=== PATIENT | female | born 1945 | race Caucasian/White ===

== ENCOUNTER 2016-08-09 12:27 | Outpatient (CLI) | payer MEDICARE | END 2016-08-09 12:28 | disposition home or self-care (01) | DX: C50.911 Malignant neoplasm of unspecified site of right female breast (principal) ==

== ENCOUNTER 2016-10-12 09:19 | Outpatient (CLI) | payer MEDICARE | END 2016-10-12 09:20 | disposition home or self-care (01) | DX: E11.9 Type 2 diabetes mellitus without complications (principal); E03.9 Hypothyroidism, unspecified ==

== ENCOUNTER 2017-02-05 07:22 | Outpatient (CLI) | payer MEDICARE | END 2017-02-05 07:23 | disposition home or self-care (01) | LOC: LAB.WCP 07:22 | PROVIDERS: ATTEND Family Medicine | DX: N39.0 Urinary tract infection, site not specified (principal) | CPT/HCPCS: 87077; 87086 ==

== ENCOUNTER 2017-02-09 16:42 | Outpatient (CLI) | payer MEDICARE ==
--- NOTE | 2017-02-09 22:07 | MRI Report ---
EXAM: RIGHT SHOULDER MRI WITHOUT CONTRAST EXAM DATE: 02/09/2017 05:21 p.m. CLINICAL HISTORY: Right rotator cuff syndrome. COMPARISON: Right shoulder MRI from 03/18/2015. TECHNIQUE: Multiplanar, multisequence T1-weighted and fluid-sensitive sequences of the shoulder witho ut contrast. Other: None. FINDINGS: Acromioclavicular Region: The acromion is type I. Small enthesophytes at the undersurface of the acro mion. Mild acromioclavicular joint osteoarthritis. The coracoacromial and coracoclavicular ligaments are intact. Small amount of fluid at the subacromial subdeltoid bursa. Glenohumeral Region: No subluxation. Small glenohumeral joint effusion. There is a 9 x 7 x 6 mm loose body within the anterosuperior medial aspect of the glenohumeral joint. It is unchanged since the pr evious study. 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 The gleno humeral ligaments and joint capsule are unremarkable. Bone Marrow: No fracture, marrow edema or bone lesions. Labrum: The labrum is unremarkable on this nonarthrographic study. Musculature/Rotator Cuff: There is a focal, approximately 1.6 x 1.1 cm high-grade partial-thickness b ursal surface or full-thickness tear at the anterior distal supraspinatus tendon. Similar findings ar e seen on the previous study. Tendinosis at the remaining supraspinatus tendon and at the infraspinat us tendon. The teres minor tendon is unremarkable. Small ganglion cysts within the distal aspect of t he subscapularis muscle tendon unit. Subscapularis tendinosis. No edema or fatty atrophy. Biceps Tendon: The long head of the biceps tendon and biceps perla are intact. Other: The subcutaneous tissues are unremarkable. IMPRESSION: 1. Focal high-grade partial-thickness bursal surface or a full-thickness tear at the anterior distal supraspinatus tendon. Similar findings are seen on the previous study. There is also supraspinatus an d infraspinatus and subscapularis tendinosis. 2. Mild acromioclavicular joint osteoarthritis. 3. A 9 x 7 x 6 mm loose body within the anterosuperior medial aspect of the glenohumeral joint. No ch sarah. 4. 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 [facility] MUSCULOSKELETAL RADIOLOGY SECTION Referring Provider Line: [phone] SITE ID: [id number]
== END 2017-02-09 16:43 | disposition home or self-care (01) ==
LOC: DI 16:42
PROVIDERS: ATTEND Physician Assistant Medical
DX: M75.101 Unspecified rotator cuff tear or rupture of right shoulder, not specified as traumatic (principal); M19.011 Primary osteoarthritis, right shoulder; M24.011 Loose body in right shoulder; M94.211 Chondromalacia, right shoulder

== ENCOUNTER 2017-03-27 18:36 | Outpatient (CLI) | payer MEDICARE ==
[2017-03-27 18:42] LABS: BASOPHILS % (AUTO) 0.2 %; EOSINOPHILS # (AUTO) 0.1 10^3/uL (0.0-0.7); EOSINOPHILS % (AUTO) 0.7 %; HCT - HEMATOCRIT 38.5 % (37.0-47.0); LYMPHOCYTES # (AUTO) 1.8 10^3/uL (1.5-3.5); LYMPHOCYTES % (AUTO) 14.1 %; MEAN CORPUSCULAR HEMOGLOBIN 31.2 pg (27.0-31.0); MEAN CORPUSCULAR HGB CONC 33.8 g/dL (32.0-36.0); MEAN CORPUSCULAR VOLUME 92.4 fL (81.0-99.0); MEAN PLATELET VOLUME 9.1 fL (7.9-10.8); MONOCYTES # (AUTO) 0.9 10^3/uL (0.0-1.0); MONOCYTES % (AUTO) 6.8 %; NEUTROPHILS # (AUTO) 10.1 10^3/uL (1.5-6.6); NEUTROPHILS % (AUTO) 78.2 %; RED BLOOD COUNT 4.16 10^6/uL (4.20-5.40); RED CELL DISTRIBUTION WIDTH 12.4 % (12.0-15.0)
[2017-03-27 18:54] LABS: ALBUMIN/GLOBULIN RATIO 1.3 (1.0-2.2); BILIRUBIN,TOTAL 0.5 mg/dL (0.2-1.0); CALCIUM 10.9 mg/dL (8.5-10.3); CREATININE 0.7 mg/dL (0.4-1.0); TOTAL PROTEIN 8.1 g/dL (6.7-8.2)
[2017-03-27 19:02] LABS: H. PYLORI IGG ANTIBODY Negative (Negative); HPYLORI NEG QC Negative (Negative); HPYLORI POS QC POSITIVE (Positive)
[2017-03-27] MEDS ORDERED: IOPAMIDOL-300 100 ML VIAL IVP ONE (20:21)
[2017-03-27] MEDS ORDERED: IOPAMIDOL-300 50 ML VIAL PO ONE (20:21)
--- NOTE | 2017-03-27 21:05 | CT Report ---
EXAM: CT ABDOMEN AND PELVIS EXAM DATE: 03/27/2017 08:27 PM. CLINICAL HISTORY: ABDOMINAL PAIN,RIGHT LOWER QUADRANT. COMPARISONS: None. TECHNIQUE: Routine helical CT imaging was performed through the abdomen and pelvis. IV contrast: 100 mL Isovue-300. Enteric contrast: No. Reconstructions: Coronal and sagittal. In accordance with CT protocol optimization, one or more of the following dose reduction techniques w ere utilized for this exam: automated exposure control, adjustment of mA and/or KV based on patient s ize, or use of iterative reconstructive technique. FINDINGS: Lung Bases: Subpleural scarring anteriorly at the right lung base. Otherwise unremarkable. Liver: Normal. No masses. Gallbladder/Bile Ducts: The gallbladder has been removed. No bile duct dilatation. Spleen: Normal. Pancreas: Normal. Adrenal Glands: Normal. Kidneys: Normal. No masses or hydronephrosis. Peritoneal Cavity/Bowel: Normal. No free fluid, free air or adenopathy. No masses or acute inflammato ry process. No evidence of appendicitis. There is sigmoid colon diverticulosis with a short segment o f mural thickening and pericolonic inflammatory stranding involving the sigmoid colon. Several tiny a ir collections noted within the mesocolon. Duodenal diverticulosis also noted. Pelvic Organs: Normal urinary bladder. The uterus is been removed. Vasculature: No aneurysms or other significant abnormality. Bones: No significant abnormality. Other: None. IMPRESSION: 1. Acute sigmoid colon diverticulitis with microperforation. No evidence of abscess. [facility] The call report notification system was initiated by Dr. Ross Koehler at 20:52 hrs on 03/27/17. The above findings were discussed with LINDA Cm by Dr. Ross Koehler at 21:01 hrs on 03/27/17. Referring Provider Line: [phone] SITE ID: [id number]
== END 2017-03-27 18:37 | disposition home or self-care (01) ==
LOC: DI 18:36
PROVIDERS: ATTEND Physician Assistant Medical
DX: K57.32 Diverticulitis of large intestine without perforation or abscess without bleeding (principal); R10.31 Right lower quadrant pain
CPT/HCPCS: 36415; 74177; 80053; 83690; 85025; 87339; Q9967

== ENCOUNTER 2017-03-29 09:06 | Outpatient (CLI) | payer MEDICARE ==
--- NOTE | 2017-03-29 12:53 | Mammography Report ---
DIGITAL DIAGNOSTIC RIGHT MAMMOGRAM: 03/29/2017 CLINICAL INDICATION: History of right breast cancer status post lumpectomy and radiation therapy. TECHNIQUE: Right CC, MLO, true lateral, laterally exaggerated craniocaudal, spot magnification views . COMPARISON: 08/09/2016, 06/22/2015, 06/09/2015, 05/20/2015, 04/03/2013, 03/12/2012, 02/26/2012, 10/22, 11/12/2009 FINDINGS: The right breast again demonstrates scattered fibroglandular densities. Postoperative and post-treatment changes in the right upper outer posterior breast are stable. Coarse and punctate, t ypically benign calcifications are present. No suspicious masses, clustered microcalcifications, or regions of architectural distortion are identified. IMPRESSION: PROBABLE BENIGN POSTOPERATIVE AND POST-TREATMENT CHANGES. RECOMMENDATION: Diagnostic bilateral mammogram in six months. BIRADS CATEGORY 3 - PROBABLE BENIGN FINDINGS. STANDARD QUALIFYING STATEMENTS 1. This examination was reviewed with the aid of Computer-Aided Detection (CAD). 2. A negative or benign imaging report should not delay biopsy if clinically suspicious findings are present. Consider surgical consultation if warranted. More than 5% of cancers are not identified by i maging. 3. Dense breasts may obscure an underlying neoplasm. JOB #: [id number] EXT JOB #:[id number]
== END 2017-03-29 09:07 | disposition home or self-care (01) ==
LOC: DI 09:06
PROVIDERS: ATTEND Physician Assistant Medical
DX: C50.911 Malignant neoplasm of unspecified site of right female breast (principal)
CPT/HCPCS: 36415; 80053; 83690; 85025; 87339

== ENCOUNTER 2017-05-04 13:54 | Outpatient (CLI) | payer MEDICARE ==
[2017-05-04 14:27] LABS: CALCIUM 10.6 mg/dL (8.5-10.3); CREATININE 0.7 mg/dL (0.4-1.0); POTASSIUM 3.9 mmol/L (3.5-5.0)
[2017-05-04] MEDS ORDERED: IOPAMIDOL-300 100 ML VIAL ONE (14:31)
[2017-05-04] MEDS ORDERED: IOPAMIDOL-300 50 ML VIAL ONE (14:31)
[2017-05-04] MEDS: IOPAMIDOL-300 100 ML VIAL IVP ONE (15:38)
[2017-05-04] MEDS: IOPAMIDOL-300 50 ML VIAL PO ONE (15:39)
--- NOTE | 2017-05-04 16:11 | CT Report ---
CT OF THE ABDOMEN AND PELVIS WITH CONTRAST: 05/04/2017 CLINICAL INDICATION: Diverticulitis. COMPARISON: 03/27/2017. TECHNIQUE: Axial CT images of the abdomen and pelvis were obtained with 100 mL of Isovue-300 intraven ously as well as oral contrast. FINDINGS: Limited evaluation of the lung bases is unremarkable. ABDOMEN: The liver, spleen, pancreas, kidneys and adrenal glands are unremarkable. The patient is sta tus post cholecystectomy. No bowel dilatation, free gas, or free fluid is present. No abdominal adeno yuridia is seen. PELVIS: The previously seen sigmoid diverticulitis with microperforation has resolved. No new inflamm ation is appreciated. Postoperative changes of hysterectomy are present. No adenopathy or free fluid is seen. The osseous structures demonstrate degenerative changes. IMPRESSION: RESOLUTION OF PREVIOUSLY SEEN DIVERTICULITIS AND MICROPERFORATION. NO ABSCESS OR NEW INF LAMMATION IS SEEN. In accordance with CT protocol optimization, one or more of the following dose reduction techniques w ere utilized for this exam: automated exposure control, adjustment of mA and/or KV based on patient size, or use of iterative reconstructive technique. JOB #: [id number] EXT JOB #:[id number]
== END 2017-05-04 13:55 | disposition home or self-care (01) ==
LOC: LAB 13:54
PROVIDERS: ATTEND Physician Assistant Medical
DX: K57.92 Diverticulitis of intestine, part unspecified, without perforation or abscess without bleeding (principal); E11.9 Type 2 diabetes mellitus without complications
CPT/HCPCS: 36415; 74177; 80048; Q9967

== ENCOUNTER 2017-05-10 15:56 | Outpatient (CLI) | payer MEDICARE ==
[2017-05-10 19:31] LABS: HEMOGLOBIN A1C 0.51 g/dL
== END 2017-05-10 15:57 | disposition home or self-care (01) ==
LOC: LAB.WCP 15:56
PROVIDERS: ATTEND Physician Assistant Medical
DX: E83.52 Hypercalcemia (principal); E11.9 Type 2 diabetes mellitus without complications; E78.5 Hyperlipidemia, unspecified; R73.9 Hyperglycemia, unspecified; E03.9 Hypothyroidism, unspecified; D64.9 Anemia, unspecified; D72.829 Elevated white blood cell count, unspecified
CPT/HCPCS: 36415; 83036; 83519; 83970

== ENCOUNTER 2017-08-14 15:30 | Outpatient (CLI) | payer MEDICARE | END 2017-08-14 15:31 | disposition home or self-care (01) | LOC: LAB.R 15:30 | PROVIDERS: ATTEND Physician Assistant Medical | DX: N39.0 Urinary tract infection, site not specified (principal) | CPT/HCPCS: 87086 ==

== ENCOUNTER 2017-08-29 14:48 | Outpatient (CLI) | payer MEDICARE ==
--- NOTE | 2017-08-29 17:28 | Ultrasound Report ---
ULTRASOUND LEFT AXILLA: 08/29/2017 CLINICAL INDICATION: Palpable abnormality. TECHNIQUE: Real-time scanning was performed with media sales representative static images obtained. FINDINGS: Ultrasound of the left axilla was performed. There is left axillary adenopathy, with the largest node measuring 2.9 x 2.4 x 1.5 cm, and an adjacent node measuring 2.6 x 2.5 x 1.1 cm. IMPRESSION: LEFT AXILLARY ADENOPATHY. TD: 08/29/2017 17:27
== END 2017-08-29 14:49 | disposition home or self-care (01) ==
LOC: DI 14:48
PROVIDERS: ATTEND Surgery
DX: R59.0 Localized enlarged lymph nodes (principal)
CPT/HCPCS: 76882

== ENCOUNTER 2017-10-15 09:31 | Outpatient (CLI) | payer MEDICARE ==
[2017-10-15] MEDS ORDERED: LIDOCAINE 1% 10 ML MDV SUBQ ONE (11:20)
--- NOTE | 2017-10-15 11:43 | Ultrasound Report ---
ULTRASOUND-GUIDED FINE NEEDLE ASPIRATION OF LEFT AXILLARY LYMPH NODE: 10/15/2017 CLINICAL INDICATION: History of right breast cancer, palpable left axillary adenopathy. TECHNIQUE/FINDINGS: Following obtaining informed consent, a suitable site in the left axilla was selected with ultrasound. The skin was prepped and draped in the usual sterile fashion. The skin and soft tissues were anesthetized with lidocaine. Under ultrasound guidance, four 22-gauge fine needle aspirations were performed. Needle washings were submitted to Pathology in [facility]. The patient tolerated the procedure well. No immediate complications. IMPRESSION: ULTRASOUND-GUIDED FINE NEEDLE ASPIRATION OF LEFT AXILLARY ADENOPATHY. TD: 10/15/2017 11:42
[2017-10-15 16:46] VITALS: BP 130/84
== END 2017-10-15 09:32 | disposition home or self-care (01) ==
LOC: DI 09:31
PROVIDERS: ATTEND Surgery
DX: R22.2 Localized swelling, mass and lump, trunk (principal); Z85.3 Personal history of malignant neoplasm of breast
CPT/HCPCS: 10022; 76942

== ENCOUNTER 2017-10-24 12:27 | Outpatient (CLI) | payer MEDICARE ==
--- NOTE | 2017-10-24 14:54 | Mammography Report ---
BILATERAL MAMMOGRAPHY: 10/24/2017 HISTORY: Status post lumpectomy and radiation therapy for right breast cancer. COMPARISON: 03/29/2017, 08/09/2016, 06/22/2015, 06/09/2015, 05/20/2015, 04/03/2013, and 03/12/2012. TECHNIQUE: Bilateral digital CC and MLO projections are performed with an additional right true lateral image. FINDINGS: There are scattered fibroglandular densities. There is a focal area of architectural distortion with surgical onesimo and skin thickening in the right upper outer quadrant, corresponding to the site of prior lumpectomy. Scattered benign-appearing calcifications are seen in both breasts. No suspicious microcalcifications, dominant new mass, or interval change has occurred. In the left axilla, prominent lymph nodes are present which appear fatty with peripheral calcification. Vascular calcifications also noted. IMPRESSION: BENIGN - BI-RADS CATEGORY 2. SUGGEST ROUTINE SCREENING IN 12 MONTHS. COMMENT: The patient is scheduled for a biopsy of prominent left axillary lymph nodes on Sunday10/26/2017. STANDARD QUALIFYING STATEMENTS: 1. This examination was reviewed with the aid of Computer-Aided Detection (CAD). 2. A negative or benign imaging report should not delay biopsy if clinically suspicious findings are present. Consider surgical consultation if warranted. More than 5% of cancers are not identified by imaging. 3. Dense breasts may obscure an underlying neoplasm. TD: 10/24/2017 14:52
== END 2017-10-24 12:28 | disposition home or self-care (01) ==
LOC: DI 12:27
PROVIDERS: ATTEND Physician Assistant Medical
DX: R92.8 Other abnormal and inconclusive findings on diagnostic imaging of breast (principal)
CPT/HCPCS: 77066

== ENCOUNTER 2017-10-25 14:08 | Emergency (ER) | payer MEDICARE ==
[2017-10-25] MEDS ORDERED: SODIUM CHLORIDE 0.9% 1,000 ML IV ONE (17:38)
[2017-10-25] MEDS ORDERED: ONDANSETRON 4 MG/2 ML VIAL IVP STA (17:38)
--- NOTE | 2017-10-25 17:41 | ED Physician Documentation ---
PD HPI ABD PAIN - Stated complaint Stated Complaint: ABD PX/NAUSEA - Chief complaint Chief Complaint: Abd Pain - History obtained from History obtained from: Patient - History of Present Illness Timing - onset: Yesterday (She had perforated diverticulitis last year which was treated conservatively. No antibiotics since. Starting yesterday she developed diffuse and lower abdominal pain associated with nonbloody diarrhea and nausea without vomiting. She has not had fevers or chills. No recent travel, antibiotics, or camping. No sick contacts.) Review of Systems Ten Systems: 10 systems reviewed and negative Constitutional: denies: Fever, Chills Cardiac: denies: Chest pain / pressure, Palpitations Respiratory: denies: Dyspnea, Cough GI: reports: Abdominal Pain, Nausea, Diarrhea. denies: Vomiting, Constipation, Hematemesis, Bloody / black stool PD PAST MEDICAL HISTORY - Past Medical History Cardiovascular: Hypertension, High cholesterol, Other Respiratory: None Endocrine/Autoimmune: HyPOthyroidism GI: GERD : Incontinence, Frequency, Kidney stones, Other Psych: Depression, Anxiety, Panic attacks, Claustrophobia Musculoskeletal: Osteoarthritis, Fibromyalgia, Osteoporosis Derm: Eczema - Past Surgical History Past Surgical History: Yes General: Cholecystectomy, Colonoscopy Ortho: Knee replacement /SUPERINTENDENT PIPELINES: Hysterectomy, Other - Present Medications Home Medications: Ambulatory Orders Medication Instructions Recorded Confirmed Citalopram [CeleXA] 30 mg PO ONCE 12/19/12 08/21/16 Gemfibrozil [Lopid] 600 mg PO BIDAC 12/19/12 08/21/16 Levothyroxine Sodium [Tirosint] 75 mcg PO DAILY 12/19/12 08/21/16 Losartan [Cozaar] 50 mg PO DAILY 12/19/12 08/21/16 Pantoprazole Sodium 40 mg PO BID 12/19/12 08/21/16 raNITIdine HCl [Ranitidine HCl] 300 mg PO HS 12/19/12 08/21/16 Montelukast [Singulair] 10 mg ORAL DAILY 05/24/15 08/21/16 diphenhydrAMINE [Benadryl] 25 mg PO ONCE PRN 09/20/15 08/21/16 Ascorbic Acid [Vitamin C] 500 mg PO DAILY 08/21/16 08/21/16 Bacillus Coagulans [Probiotic] 1 cap PO DAILY 08/21/16 08/21/16 Andrae Cit/Mag/D3/Zn/Video Editing Intern/Cheko/Bor 3 each PO DAILY 08/21/16 08/21/16 [Citracal-Vit D + Magnesium Tab] Cholecalciferol (Vitamin D3) 2,000 unit PO DAILY 08/21/16 08/21/16 [Vitamin D] Cranberry Fruit Extract [Cranberry] 4 cap PO DAILY 08/21/16 08/21/16 Flaxseed Oil 2 mg PO DAILY 08/21/16 08/21/16 Garlic 1,000 mg PO DAILY 08/21/16 08/21/16 Glucosamine/D3/Boswellia Jenny 2 tab PO DAILY 08/21/16 08/21/16 [Osteo Bi-Flex Tablet] Meloxicam 7.5 mg PO DAILY 08/21/16 08/21/16 Vitamin B Complex Vit C No.4 150 mg PO DAILY 08/21/16 08/21/16 [Super B Complex] Dicyclomine HCl 20 mg PO QID PRN #20 tablet 10/25/17 Loperamide [Imodium] 2 mg PO QID PRN #10 capsule 10/25/17 - Allergies Allergies/Adverse Reactions: Allergies Allergy/AdvReac Type Severity Reaction Status Date / Time metformin Allergy Intermediate Nausea Verified 10/25/17 14:55 amoxicillin trihydrate * Allergy Mild Nausea Verified 10/25/17 14:55 [From Augmentin] potassium clavulanate * Allergy Mild Nausea Verified 10/25/17 14:55 [From Augmentin] fluticasone [From Flonase] Allergy Edema Verified 10/25/17 14:55 Penicillins Allergy Edema Verified 10/25/17 14:55 - Social History Does the pt smoke?: No Smoking Status: Never smoker Does the pt drink ETOH?: No Does the pt have substance abuse?: No - Family History Family history: reports: Non contributory - Immunizations Immunizations are current?: Yes - POLST Patient has POLST: No PD ED PE NORMAL - Vitals Vital signs reviewed: Yes - General General: Alert and oriented X 3, No acute distress - HEENT HEENT: PERRL, EOMI - Neck Neck: Supple, no meningeal sign, No bony TTP - Cardiac Cardiac: RRR, No murmur - Respiratory Respiratory: No respiratory distress, Clear bilaterally - Abdomen Abdomen: Normal bowel sounds, Soft, Other (Mild L side TTP) - Back Back: No CVA TTP, No spinal TTP - Derm Derm: Normal color, Warm and dry - Extremities Extremities: No edema, No calf tenderness / cord - Neuro Neuro: Alert and oriented X 3, Normal speech - Psych Psych: Normal mood, Normal affect Results - Vitals Vitals: Vital Signs - 24 hr 10/25/17 10/25/17 10/25/17 14:52 17:42 18:28 Temperature 36.7 C 37 C Heart Rate 71 88 81 Respiratory 15 16 18 Rate Blood Pressure 137/83 H 128/77 128/71 O2 Saturation 97 96 96 10/25/17 20:09 Temperature 37.1 C Heart Rate 74 Respiratory 16 Rate Blood Pressure 137/68 H O2 Saturation 94 Oxygen O2 Source Room air - Labs Labs: Microbiology 10/25/17 18:47 Clostridium difficile (PCR) - Final Stool 10/25/17 18:47 Campylobacter Antigen Assay - Final Stool Laboratory Tests 10/25/17 10/25/17 10/25/17 15:40 17:54 17:54 WBC 6.3 RBC 4.54 Hgb 14.0 Hct 41.4 MCV 91.1 MCH 30.8 MCHC 33.8 RDW 12.9 Plt Count 217 MPV 8.8 Neut # 4.6 Lymph # 1.1 L [place] # 0.5 Eos # 0.1 Baso # 0.0 Absolute Nucleated RBC 0.00 Nucleated RBC % 0.0 Sodium 137 Potassium 3.8 Chloride 103 Carbon Dioxide 25 Anion Gap 9.0 BUN 16 Creatinine 0.7 Estimated GFR (MDRD) 82 L Glucose 116 H Calcium 9.9 Total Bilirubin 0.5 AST 25 ALT 21 Alkaline Phosphatase 82 Total Protein 8.0 Albumin 4.7 Globulin 3.3 Albumin/Globulin Ratio 1.4 Lipase 44 Urine Color YELLOW Urine Clarity CLEAR Urine pH 6.0 Ur Specific Robert 1.020 Urine Protein NEGATIVE Urine Glucose (UA) NEGATIVE Urine Ketones NEGATIVE Urine Occult Blood NEGATIVE Urine Nitrite NEGATIVE Urine Bilirubin NEGATIVE Urine Urobilinogen 0.2 (NORMAL) Ur Leukocyte Esterase NEGATIVE Ur Microscopic Review NOT INDICATED Urine Culture Comments NOT INDICATED - Rads (name of study) CT A/P Radiology: EMP read contemporaneously (diverticula but no diverticulosis) PD MEDICAL DECISION MAKING - ED course ED course: 71-year-old woman with history of perforated diverticulitis presents with a benign belly but abdominal pain and diarrhea. Without the history of diverticulitis, this really is not consistent but she had a specific concern about that given the history of CT was done. Seems more like a mild colitis, and stool studies were also done but her blood work is reassuring. Initial stool studies were negative but a culture is being processed. Departure - Departure Disposition: 01 Home, Self Care Clinical Impression: Diarrhea Qualifiers: Diarrhea type: presumed infectious Qualified Code(s): R19.7 - Diarrhea, unspecified Abdominal pain Qualifiers: Abdominal location: left lower quadrant Qualified Code(s): R10.32 - Left lower quadrant pain Condition: Good Record reviewed to determine appropriate education?: Yes Instructions: ED Diarrhea Viral Prescriptions: Dicyclomine HCl 20 mg PO QID PRN #20 tablet PRN Reason: Abdominal Cramps Loperamide [Imodium] 2 mg PO QID PRN #10 capsule PRN Reason: Diarrhea Comments: We will call if stool cultures are positive. Return if worse or not better in 24-48 hours. Discharge Date/Time: 10/25/17 20:10
[2017-10-25 17:51] LABS: BILIRUBIN,URINE NEGATIVE (NEGATIVE); GLUCOSE, URINE (UA) NEGATIVE (NEGATIVE); KETONES,URINE (UA) NEGATIVE (NEGATIVE); LEUKOCYTE ESTERASE, URINE NEGATIVE (NEGATIVE); NITRITE,URINE NEGATIVE (NEGATIVE); OCCULT BLOOD,URINE NEGATIVE (NEGATIVE); PROTEIN,URINE NEGATIVE (NEGATIVE); UROBILINOGEN,URINE 0.2 (NORMAL) E.U./dL (NORMAL)
[2017-10-25 17:52] LABS: CLARITY,URINE CLEAR (CLEAR)
[2017-10-25 18:02] LABS: BASOPHILS % (AUTO) 0.7 %; EOSINOPHILS # (AUTO) 0.1 10^3/uL (0.0-0.7); EOSINOPHILS % (AUTO) 1.3 %; LYMPHOCYTES # (AUTO) 1.1 10^3/uL (1.5-3.5); MEAN CORPUSCULAR HEMOGLOBIN 30.8 pg (27.0-31.0); MEAN CORPUSCULAR HGB CONC 33.8 g/dL (32.0-36.0); MEAN CORPUSCULAR VOLUME 91.1 fL (81.0-99.0); MEAN PLATELET VOLUME 8.8 fL (7.9-10.8); MONOCYTES # (AUTO) 0.5 10^3/uL (0.0-1.0); MONOCYTES % (AUTO) 7.9 %; NEUTROPHILS # (AUTO) 4.6 10^3/uL (1.5-6.6); NEUTROPHILS % (AUTO) 73.1 %; PLT - PLATELET COUNT 217 10^3/uL (130-450); RED BLOOD COUNT 4.54 10^6/uL (4.20-5.40); RED CELL DISTRIBUTION WIDTH 12.9 % (12.0-15.0); WHITE BLOOD COUNT 6.3 x10^3/uL (4.8-10.8)
[2017-10-25 18:15] LABS: ALBUMIN 4.7 g/dL (3.2-5.5); ALBUMIN/GLOBULIN RATIO 1.4 (1.0-2.2); BILIRUBIN,TOTAL 0.5 mg/dL (0.2-1.0); CALCIUM 9.9 mg/dL (8.5-10.3); CREATININE 0.7 mg/dL (0.4-1.0)
[2017-10-25] MEDS ORDERED: IOPAMIDOL-300 100 ML VIAL ONE (18:43)
[2017-10-25] MEDS ORDERED: IOPAMIDOL-300 100 ML VIAL IVP ONE (19:00)
--- NOTE | 2017-10-25 19:30 | CT Report ---
EXAM: CT ABDOMEN AND PELVIS EXAM DATE: 10/25/2017 07:00 PM. CLINICAL HISTORY: Lower abdomen pain since yesterday. Nausea. Diarrhea. COMPARISONS: 05/04/2017. TECHNIQUE: Routine helical CT imaging was performed through the abdomen and pelvis. IV contrast: 100 cc of Isovue-300. Enteric contrast: No. Reconstructions: Coronal and sagittal. In accordance with CT protocol optimization, one or more of the following dose reduction techniques w ere utilized for this exam: automated exposure control, adjustment of mA and/or KV based on patient s ize, or use of iterative reconstructive technique. FINDINGS: Lung Bases: Unremarkable. Liver: Normal. No masses. Gallbladder/Bile Ducts: Cholecystectomy. No dilated ducts. Spleen: Normal. Pancreas: Normal. Adrenal Glands: Normal. Kidneys: Normal. No masses or hydronephrosis. Peritoneal Cavity/Bowel: Mild diverticulosis. No free fluid, free air or adenopathy. No masses or acu te inflammatory process. The appendix is well visualized and normal. Pelvic Organs: Hysterectomy. Unremarkable bladder. Vasculature: No aneurysms or other significant abnormality. Bones: No significant abnormality. Other: None. IMPRESSION: 1. Mild diverticulosis without diverticulitis or other acute bowel abnormality. 2. Cholecystectomy and hysterectomy noted. [facility] Referring Provider Line: [phone] SITE ID: [id number]
[2017-10-25] MEDS ORDERED: DICYCLOMINE 10 MG CAPSULE PO STA (19:43)
[2017-10-25] MEDS ORDERED: LOPERAMIDE 2 MG CAPSULE PO STA (19:43)
[2017-10-25 20:10] VITALS: BP 137/68
== END 2017-10-25 20:10 | disposition home or self-care (01) ==
LOC: ED 14:08
DX: R19.7 Diarrhea, unspecified (principal); R10.32 Left lower quadrant pain; I10 Essential (primary) hypertension; E78.00 Pure hypercholesterolemia, unspecified; E03.9 Hypothyroidism, unspecified; Z96.659 Presence of unspecified artificial knee joint
CPT/HCPCS: 36415; 74177; 80053; 81003; 83690; 85025; 87045; 87046; 87493; 96361; 96374; 99284; A9270; Q9967; 81001; 87086

== ENCOUNTER 2017-10-26 11:23 | Outpatient (CLI) | payer MEDICARE ==
[2017-10-26] MEDS ORDERED: BUPIVACAINE 0.5% PF 10 ML VIAL IM ONE (14:12)
[2017-10-26] MEDS ORDERED: BUFFERED LIDOCAINE 10 ML SYRINGE IU ONE (14:12)
--- NOTE | 2017-10-26 15:22 | Ultrasound Report ---
LEFT AXILLARY CORE BIOPSY USING ULTRASOUND GUIDANCE: 10/26/2017 HISTORY: Right breast cancer. Palpable lymphadenopathy left axilla with recent unsuccessful left axillary fine needle aspiration. Surgeon requests core biopsy left axillary lymph nodes. FINDINGS: Initial ultrasound of the left axillary region shows several enlarged lymph nodes. The risks and complications of the procedure including bleeding, infection, and damage to an artery or nerve are discussed with the patient and the patient gives consent. Using ultrasound guidance, an appropriate left axillary lymph node is marked. The skin is prepped and draped in the usual fashion and 1% lidocaine and 0.5% bupivacaine used for local anesthesia. A small skin jax is made. An 18-gauge Achieve core biopsy needle is introduced. Using ultrasound guidance, four passes are made through the lymph node. The patient tolerated the procedure well. IMPRESSION: SUCCESSFUL LEFT AXILLARY LYMPH NODE BIOPSY USING ULTRASOUND GUIDANCE. FINAL RECOMMENDATION PENDING PATHOLOGY REVIEW. TD: 10/26/2017 15:21 [facility]
== END 2017-10-26 11:24 | disposition home or self-care (01) ==
LOC: DI 11:23
PROVIDERS: ATTEND Surgery
DX: R59.0 Localized enlarged lymph nodes (principal); Z85.3 Personal history of malignant neoplasm of breast
CPT/HCPCS: 19083; 88305; 88342

== ENCOUNTER 2017-11-02 08:00 | Outpatient (CLI) | payer MEDICARE ==
[2017-11-02 19:19] LABS: ALBUMIN 4.8 g/dL (3.2-5.5); ALBUMIN/GLOBULIN RATIO 1.8 (1.0-2.2); ALKALINE PHOSPHATASE 76 IU/L (42-121); ALT ALANINE AMINOTRANSFERASE 22 IU/L (10-60); AST ASPARTATE AMINOTRANSFERASE 24 IU/L (10-42); BILIRUBIN,TOTAL 0.6 mg/dL (0.2-1.0); BUN - BLOOD UREA NITROGEN 23 mg/dL (6-20); CALCIUM 9.2 mg/dL (8.5-10.3); CARBON DIOXIDE - CO2 25 mmol/L (21-32); CHLORIDE 109 mmol/L (101-111); CHOL/HDL RATIO 3.8 (<4.4); CHOLESTEROL 182 mg/dL; CREATININE 0.7 mg/dL (0.4-1.0); GFR - MDRD 82 (>89); GLUCOSE 101 mg/dL (70-100); HDL CHOLESTEROL 48 mg/dL; LDL CHOLESTEROL,CALCULATED 105 mg/dL; LDL/HDL RATIO 2.2 (<4.4); SODIUM 136 mmol/L (135-145); TOTAL PROTEIN 7.5 g/dL (6.7-8.2); VLDL CHOLESTEROL 29 mg/dL
[2017-11-02 19:54] LABS: HEMOGLOBIN A1C 0.6 g/dL; HEMOGLOBIN A1C % 5.6 % (4.6-6.2)
== END 2017-11-02 08:01 | disposition home or self-care (01) ==
LOC: LAB.WCP 08:00
PROVIDERS: ATTEND Physician Assistant Medical
DX: E83.52 Hypercalcemia (principal); E78.5 Hyperlipidemia, unspecified; E11.9 Type 2 diabetes mellitus without complications; E21.0 Primary hyperparathyroidism
CPT/HCPCS: 36415; 80053; 80061; 83036; 83721; 84443

== ENCOUNTER → 2018-05-23 | Outpatient (CLI) | payer MEDICARE ==
[2018-05-23 19:01] LABS: CALCIUM 10.5 mg/dL (8.5-10.3); CREATININE 0.7 mg/dL (0.4-1.0)
[2018-05-23 19:41] LABS: HB2 TOTAL 14.7 g/dL; HEMOGLOBIN A1C 0.56 g/dL; HEMOGLOBIN A1C % 5.6 % (4.6-6.2)
== END ==
LOC: LAB.WCP 15:06
PROVIDERS: ATTEND Physician Assistant Medical
DX: E11.9 Type 2 diabetes mellitus without complications (principal)
CPT/HCPCS: 36415; 80048; 83036

== ENCOUNTER 2018-07-29 06:09 | Day surgery (SDC) | payer MEDICARE ==
[2018-07-29] MEDS ORDERED: LACTATED RINGERS 1,000 ML IV ONE (06:47)
[2018-07-29] MEDS ORDERED: fentaNYL 250 MCG/5 ML VIAL IVP ONE (07:44)
[2018-07-29] MEDS ORDERED: MIDAZOLAM 2 MG/2 ML VIAL IVP ONE (07:44)
[2018-07-29 08:50] VITALS: BP 119/88
== END 2018-07-29 06:10 | disposition home or self-care (01) ==
LOC: SDS 06:09
PROVIDERS: ATTEND Surgery
PROC: 0DBL8ZZ Excision of Transverse Colon, Via Natural or Artificial Opening Endoscopic (ICD-10-PCS; 2018-07-29)
PROC: 0DBN8ZZ Excision of Sigmoid Colon, Via Natural or Artificial Opening Endoscopic (ICD-10-PCS; principal; 2018-07-29 07:30)
DX: Z12.11 Encounter for screening for malignant neoplasm of colon (principal); D12.5 Benign neoplasm of sigmoid colon; D12.3 Benign neoplasm of transverse colon; K57.30 Diverticulosis of large intestine without perforation or abscess without bleeding; K64.8 Other hemorrhoids; Z80.0 Family history of malignant neoplasm of digestive organs; E11.9 Type 2 diabetes mellitus without complications; I10 Essential (primary) hypertension; K21.9 Gastro-esophageal reflux disease without esophagitis; E03.9 Hypothyroidism, unspecified; E66.9 Obesity, unspecified; Z68.33 Body mass index [BMI] 33.0-33.9, adult
CPT/HCPCS: 45380; J3010; J7120

== ENCOUNTER 2018-07-31 14:33 | Emergency (ER) | payer MEDICARE ==
[2018-07-31 14:38] VITALS: BP 118/84
--- NOTE | 2018-07-31 14:48 | ED Physician Documentation ---
PD HPI UPPER EXT INJURY - Stated complaint Stated Complaint: FALL - Chief complaint Chief Complaint: Ext Problem - History obtained from History obtained from: Patient - History of Present Illness Location: Right, Shoulder, Arm Type of injury: Fall (She says she tripped stubbing her toe going up stairs earlier this morning and landed onto her right shoulder. She had had previous rotator cuff injury with some limitation on range of motion of her right shoulder previously. She has an orthopedist she sees in [place] and there has been discussion about surgery for rotator cuff repair. She landed onto it this morning has significantly increased pain in the right shoulder with any range of motion.) Where injury occurred: Home Timing - onset: How many hours ago (few), Today Timing - duration: Hours (few) Timing - details: Abrupt onset, Still present Worsened by: Moving (Lifting and rotation are particularly painful. It hurts not only at her shoulder but also her mid humerus.), Palpating Associated symptoms: No: Weakness, Numbness, Swelling Contributing factors: No: Anticoagulated, Prior ortho surgery Similar symptoms before: Diagnosis (Has had some rotator cuff injury in the past and sees an orthopedist and [facility]. There has been prior discussion of rotator cuff repair but they have been holding off with physical therapy.) Recently seen: Not recently seen Review of Systems Constitutional: denies: Fever, Chills Cardiac: denies: Chest pain / pressure Respiratory: denies: Dyspnea GI: denies: Abdominal Pain Skin: denies: Abrasion (s), Laceration (s) Neurologic: denies: Focal weakness, Numbness Immunocompromised: denies: Immunocompromised PD PAST MEDICAL HISTORY - Past Medical History Cardiovascular: Hypertension, High cholesterol Respiratory: None, Other Neuro: Peripheral neuropathy Endocrine/Autoimmune: Type 2 diabetes, HyPOthyroidism GI: GERD, GI bleed, Ulcers, Cholelithiasis : Chronic bladder infection, Kidney stones HEENT: Chronic vision loss, Chronic sinusitis Psych: Depression, Anxiety Musculoskeletal: Osteoarthritis, Chronic back pain, Other Derm: Eczema - Past Surgical History Past Surgical History: Yes General: Cholecystectomy, Colonoscopy, EGD 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, Other HEENT: Cataracts - Present Medications Home Medications: Ambulatory Orders Medication Instructions Recorded Confirmed Citalopram [CeleXA] 30 mg PO ONCE 12/19/12 06/26/18 Gemfibrozil [Lopid] 600 mg PO BIDAC 12/19/12 06/26/18 Levothyroxine Sodium [Tirosint] 75 mcg PO DAILY 12/19/12 06/26/18 Losartan [Cozaar] 50 mg PO DAILY 12/19/12 06/26/18 Pantoprazole Sodium 40 mg PO BID 12/19/12 06/26/18 raNITIdine HCl [Ranitidine HCl] 300 mg PO HS PRN 12/19/12 06/26/18 Montelukast [Singulair] 10 mg ORAL DAILY 05/24/15 06/26/18 diphenhydrAMINE [Benadryl] 25 mg PO ONCE PRN 09/20/15 06/26/18 Ascorbic Acid [Vitamin C] 500 mg PO DAILY 08/21/16 06/26/18 Bacillus Coagulans [Probiotic] 1 cap PO DAILY 08/21/16 06/26/18 Cholecalciferol (Vitamin D3) 2,000 unit PO DAILY 08/21/16 06/26/18 [Vitamin D] Cranberry Fruit Extract [Cranberry] 4 cap PO DAILY 08/21/16 06/26/18 Flaxseed Oil 2 mg PO DAILY 08/21/16 06/26/18 Garlic 1,000 mg PO DAILY 08/21/16 06/26/18 Glucosamine/D3/Boswellia Jenny 2 tab PO DAILY 08/21/16 06/26/18 [Osteo Bi-Flex Tablet] Meloxicam 15 mg PO DAILY 08/21/16 06/26/18 Vitamin B Complex Vit C No.4 150 mg PO DAILY 08/21/16 06/26/18 [Super B Complex] Loperamide [Imodium] 2 mg PO QID PRN #10 capsule 10/25/17 06/26/18 Acetaminophen [Tylenol Arthritis] 1 - 2 each PO BID PRN 06/26/18 06/26/18 Hydrocortisone [Ala-Sascha] 1 applic TOP ONCE PRN MDD 1 06/26/18 06/26/18 Pro-Air 2 puffs INH Q4HR PRN MDD 6 06/26/18 06/26/18 Hydrocodone/Acetaminophen [[place] 1 each PO Q6H PRN #20 tablet 07/31/18 5-325 Tablet] Methocarbamol [Robaxin] 500 mg PO Q6H PRN #30 tablet 07/31/18 - Allergies Allergies/Adverse Reactions: Allergies Allergy/AdvReac Type Severity Reaction Status Date / Time metformin Allergy Intermediate Nausea Verified 10/25/17 14:55 amoxicillin trihydrate * Allergy Mild Nausea Verified 10/25/17 14:55 [From Augmentin] potassium clavulanate * Allergy Mild Nausea Verified 07/31/18 14:38 [From Augmentin] fluticasone [From Flonase] Allergy Edema Verified 10/25/17 14:55 Penicillins Allergy Edema Verified 10/25/17 14:55 Methaline blue Allergy Edema Uncoded 07/29/18 06:48 - Social History Does the pt smoke?: No Smoking Status: Never smoker Does the pt drink ETOH?: No Does the pt have substance abuse?: No - Immunizations Immunizations are current?: Yes - POLST Patient has POLST: No PD ED PE NORMAL - Vitals Vital signs reviewed: Yes - General General: Alert and oriented X 3, No acute distress (holding arm guarded to side (right)), Well developed/nourished - Neck Neck: Supple, no meningeal sign, No bony TTP, No adenopathy - Abdomen Abdomen: Soft, Non tender - Back Back: No CVA TTP, No spinal TTP - Derm Derm: Normal color, Warm and dry - Extremities Extremities: Other (Right shoulder is tender around the distal clavicle and also the anterior portion of the shoulder itself. It does not feel dislocated. There is no gross laxity on gentle range of motion of the shoulder passively. There is some tenderness in the mid to distal humerus. The elbow itself does not have any effusion or tenderness per se. She has very limited range of motion due to pain. There is some tenderness in the suprascapular area over to the right lateral neck. There is no bony area tenderness on the neck or back. There is some tenderness in the muscles of the medial scapular area on the right.) - Neuro Neuro: Alert and oriented X 3, No motor deficit, No sensory deficit, Normal speech Results - Vitals Vitals: Vital Signs - 24 hr 07/31/18 14:35 Temperature 35.9 C L Heart Rate 95 Respiratory 20 Rate Blood Pressure 118/84 H O2 Saturation 94 Oxygen O2 Source Room air - Rads (name of study) right humerus Radiology: Prelim report reviewed, EMP read contemporaneously, See rad report PD MEDICAL DECISION MAKING - ED course Complexity details: reviewed results, considered differential, d/w patient Departure - Departure Disposition: 01 Home, Self Care Clinical Impression: Fall from slip, trip, or stumble Qualifiers: Encounter type: initial encounter Qualified Code(s): W01.0XXA - Fall on same level from slipping, tripping and stumbling without subsequent striking against object, initial encounter Right shoulder strain Qualifiers: Encounter type: initial encounter Qualified Code(s): S46.911A - Strain of unspecified muscle, fascia and tendon at shoulder and upper arm level, right arm, initial encounter Condition: Stable Record reviewed to determine appropriate education?: Yes Instructions: ED Torn Rotator Cuff Follow-Up: Megha Cm PA-C [Primary Care Provider] - Prescriptions: Hydrocodone/Acetaminophen [[place] 5-325 Tablet] 1 each PO Q6H PRN #20 tablet PRN Reason: Pain Methocarbamol [Robaxin] 500 mg PO Q6H PRN #30 tablet PRN Reason: Spasms Comments: Use a sling to help with comfort of the right shoulder. Be sure to do gentle range of motion in a hanging circles or passively with your other arm several times a day to prevent stiffening of the right shoulder presuming there is some injury to the rotator cuff. Follow-up with your orthopedist in [facility] regarding further evaluation or potential repair given the prior injury to it and now the new injury. Continue usual medications including the meloxicam. Add Robaxin if needed for muscle stiffness and spasm in the shoulder and neck. Add pain medicine if needed.
[2018-07-31] MEDS ORDERED: HYDROcod/ACETAM 5/325 MG TABLET PO STA (15:29)
[2018-07-31] MEDS ORDERED: METHOCARBAMOL 500 MG TABLET PO STA (15:29)
--- NOTE | 2018-07-31 16:17 | XRAY Report ---
Reason: fell going up stairs, landed right shoulder/arm Procedure Date: 07/31/2018 Accession Number: [id number] / [id number] Procedure: XR - Humerus RT CPT Code: FULL RESULT: EXAM: RIGHT HUMERUS RADIOGRAPHY EXAM DATE: 07/31/2018 03:58 PM. CLINICAL HISTORY: Fell going up stairs, landed on right shoulder/arm. COMPARISON: None. TECHNIQUE: 2 views. FINDINGS: Bones: No fracture is identified. No aggressive osseous lesion is seen. Joints: Limited evaluation of visualized joints with no gross dislocation identified. Soft Tissues: Normal. No soft tissue swelling. IMPRESSION: No humerus fracture seen. [facility]
== END 2018-07-31 16:58 | disposition home or self-care (01) ==
LOC: ED 14:33
DX: S46.911A Strain of unspecified muscle, fascia and tendon at shoulder and upper arm level, right arm, initial encounter (principal); W01.0XXA Fall on same level from slipping, tripping and stumbling without subsequent striking against object, initial encounter; Y92.009 Unspecified place in unspecified non-institutional (private) residence as the place of occurrence of the external cause; I10 Essential (primary) hypertension; E78.00 Pure hypercholesterolemia, unspecified; E11.42 Type 2 diabetes mellitus with diabetic polyneuropathy; E03.9 Hypothyroidism, unspecified; Z96.659 Presence of unspecified artificial knee joint
CPT/HCPCS: 73060; 99283; A9270

== ENCOUNTER 2018-09-19 13:01 | Outpatient (CLI) | payer MEDICARE ==
--- NOTE | 2018-09-19 20:57 | MRI Report ---
Reason: CHRONIC RIGHT SHOULDER PAIN Procedure Date: 09/19/2018 Accession Number: [id number] / [id number] Procedure: MRI - Shoulder RT W/O CPT Code: FULL RESULT: EXAM: RIGHT SHOULDER MRI WITHOUT CONTRAST EXAM DATE: 09/19/2018 01:56 PM. CLINICAL HISTORY: CHRONIC RIGHT SHOULDER PAIN. COMPARISON: Right shoulder MRI from 02/09/2017. TECHNIQUE: Multiplanar, multisequence T1-weighted and fluid-sensitive sequences of the shoulder without contrast. Other: None. FINDINGS: Acromioclavicular Region: The acromion is type II. Mild acromioclavicular joint osteoarthritis. The coracoacromial and coracoclavicular ligaments are intact. Small to moderate amount of fluid at the subacromial/subdeltoid bursa. Glenohumeral Region: The humeral head is subluxed superiorly relative to the glenoid. Small to moderate-sized joint effusion. No loose bodies. Grade II chondromalacia and subchondral osteophytes at the humeral head. The glenohumeral ligaments and joint capsule are unremarkable. Bone Marrow: Small marginal osteophytes at the humeral head and glenoid. No acute fracture or bone lesions. Labrum: Free edge fraying at the labrum. Musculature/Rotator Cuff: Full-thickness, full-width tear of the supraspinatus tendon. Full-thickness, near full-width tear of the infraspinatus tendon. Teres minor tendon is intact. There is subscapularis tendinosis. Grade 1 atrophy of the infraspinatus muscle. Biceps Tendon: Proximal long head biceps tendinosis. Other: The subcutaneous tissues are unremarkable. IMPRESSION: 1. Full-thickness, full-width tear of the supraspinatus tendon and full-thickness, near full-width tear of the infraspinatus tendon. Subscapularis tendinosis. Grade 1 atrophy of the infraspinatus muscle. 2. Proximal long head biceps tendinosis. 3. Mild acromioclavicular joint osteoarthritis. 4. Small to moderate amount of fluid at the subacromial/subdeltoid bursa. 5. Small to moderate-sized glenohumeral joint effusion. 6. Free edge fraying at the labrum. [facility] MUSCULOSKELETAL RADIOLOGY SECTION
== END 2018-09-19 13:02 | disposition home or self-care (01) ==
LOC: DI 13:01
PROVIDERS: ATTEND Orthopaedic Surgery
DX: M19.011 Primary osteoarthritis, right shoulder (principal); M25.411 Effusion, right shoulder; S43.491A Other sprain of right shoulder joint, initial encounter; M67.813 Other specified disorders of tendon, right shoulder

== ENCOUNTER 2018-12-11 09:11 | Outpatient (CLI) | payer MEDICARE ==
[2018-12-11 13:19] LABS: BASOPHILS % (AUTO) 0.8 %; EOSINOPHILS # (AUTO) 0.2 10^3/uL (0.0-0.7); HGB - HEMOGLOBIN 13.4 g/dL (12.0-16.0); LYMPHOCYTES # (AUTO) 1.5 10^3/uL (1.5-3.5); LYMPHOCYTES % (AUTO) 29.2 %; MEAN CORPUSCULAR HEMOGLOBIN 30.6 pg (27.0-31.0); MEAN CORPUSCULAR HGB CONC 33.1 g/dL (32.0-36.0); MEAN CORPUSCULAR VOLUME 92.4 fL (81.0-99.0); MEAN PLATELET VOLUME 10.5 fL (7.9-10.8); MONOCYTES # (AUTO) 0.4 10^3/uL (0.0-1.0); MONOCYTES % (AUTO) 6.8 %; NEUTROPHILS # (AUTO) 3.2 10^3/uL (1.5-6.6); NEUTROPHILS % (AUTO) 60.2 %; PLT - PLATELET COUNT 231 10^3/uL (130-450); RED BLOOD COUNT 4.38 10^6/uL (4.20-5.40); RED CELL DISTRIBUTION WIDTH 13.2 % (12.0-15.0); WHITE BLOOD COUNT 5.2 x10^3/uL (4.8-10.8)
[2018-12-11 13:33] LABS: ALBUMIN 4.7 g/dL (3.2-5.5); ALBUMIN/GLOBULIN RATIO 1.7 (1.0-2.2); ALKALINE PHOSPHATASE 77 IU/L (42-121); ALT ALANINE AMINOTRANSFERASE 31 IU/L (10-60); AST ASPARTATE AMINOTRANSFERASE 24 IU/L (10-42); BILIRUBIN,TOTAL 0.8 mg/dL (0.2-1.0); BUN - BLOOD UREA NITROGEN 21 mg/dL (6-20); CALCIUM 9.9 mg/dL (8.5-10.3); CARBON DIOXIDE - CO2 23 mmol/L (21-32); CHLORIDE 104 mmol/L (101-111); CHOLESTEROL 199 mg/dL; CREATININE 0.6 mg/dL (0.4-1.0); GFR - MDRD 98 (>89); GLUCOSE 103 mg/dL (70-100); HDL CHOLESTEROL 50 mg/dL; LDL CHOLESTEROL,CALCULATED 115 mg/dL; LDL/HDL RATIO 2.3 (<4.4); SODIUM 138 mmol/L (135-145); TOTAL PROTEIN 7.4 g/dL (6.7-8.2); VLDL CHOLESTEROL 34 mg/dL
[2018-12-11 14:30] LABS: HB2 TOTAL 14.5 g/dL; HEMOGLOBIN A1C 0.54 g/dL; HEMOGLOBIN A1C % 5.6 % (4.6-6.2)
== END 2018-12-11 09:12 | disposition home or self-care (01) ==
LOC: LAB.WCP 09:11
PROVIDERS: ATTEND Physician Assistant Medical
DX: E11.9 Type 2 diabetes mellitus without complications (principal); E03.9 Hypothyroidism, unspecified; K21.9 Gastro-esophageal reflux disease without esophagitis
CPT/HCPCS: 36415; 80053; 80061; 82043; 83036; 83721; 84443; 85025

== ENCOUNTER 2019-01-21 11:28 | Outpatient (CLI) | payer MEDICARE ==
--- NOTE | 2019-01-21 13:13 | Mammography Report ---
Reason: SCREENING MAMMO Procedure Date: 01/21/2019 Accession Number: [id number] / [id number] Procedure: MGN - Screening Mammo Dig Bilat CPT Code: FULL RESULT: EXAM: Screening Mammo Dig Bilat DATE: 01/21/2019 12:09 PM CLINICAL HISTORY: History of breast cancer with the right lumpectomy and radiation therapy. For routine screening. TECHNIQUE: (B) - Bilateral CC and MLO views were obtained. COMPARISON: 10/24/2017, 03/29/2017, 08/09/2016, 07/19/2015, 06/22/2015, 06/09/2015 and 05/20/2015 PARENCHYMAL PATTERN: (A) - The breasts demonstrate scattered fibroglandular densities bilaterally. FINDINGS: Stable right breast post therapeutic change. There are no new suspicious masses, calcifications, or areas of distortion. IMPRESSION: Benign findings. BI-RADS category 2. RECOMMENDATION: (ANNUAL) - Recommend routine annual screening mammography. BI-RADS CATEGORY: (2) - Benign Findings. STANDARD QUALIFYING STATEMENTS: 1. This examination was not reviewed with the aid of Computer-Aided Detection (CAD). 2. A negative or benign imaging report should not preclude biopsy if clinically suspicious findings are present. 3. Dense breasts may obscure an underlying neoplasm. 4. This examination was reviewed without the aid of 3D breast imaging (tomosynthesis).
== END 2019-01-21 11:29 | disposition home or self-care (01) ==
LOC: DI.N 11:28
DX: Z12.31 Encounter for screening mammogram for malignant neoplasm of breast (principal)
CPT/HCPCS: 77067

== ENCOUNTER 2019-05-26 08:00 | Outpatient (CLI) | payer MEDICARE ==
[2019-05-26 19:36] LABS: HB2 TOTAL 14.2 g/dL; HEMOGLOBIN A1C 0.53 g/dL; HEMOGLOBIN A1C % 5.6 % (4.6-6.2)
[2019-05-26 19:40] LABS: ALBUMIN 4.8 g/dL (3.2-5.5); ALBUMIN/GLOBULIN RATIO 1.7 (1.0-2.2); ALKALINE PHOSPHATASE 66 IU/L (42-121); ALT ALANINE AMINOTRANSFERASE 17 IU/L (10-60); AST ASPARTATE AMINOTRANSFERASE 21 IU/L (10-42); BILIRUBIN,TOTAL 0.6 mg/dL (0.2-1.0); BUN - BLOOD UREA NITROGEN 22 mg/dL (6-20); CARBON DIOXIDE - CO2 27 mmol/L (21-32); CHLORIDE 105 mmol/L (101-111); CHOL/HDL RATIO 3.2 (<4.4); CHOLESTEROL 185 mg/dL; CREATININE 0.7 mg/dL (0.4-1.0); GFR - MDRD 82 (>89); GLUCOSE 89 mg/dL (70-100); HDL CHOLESTEROL 57 mg/dL; LDL CHOLESTEROL,CALCULATED 107 mg/dL; LDL/HDL RATIO 1.9 (<4.4); SODIUM 139 mmol/L (135-145); TOTAL PROTEIN 7.6 g/dL (6.7-8.2); VLDL CHOLESTEROL 21 mg/dL
== END 2019-05-26 08:01 | disposition home or self-care (01) ==
LOC: LAB.WCP 08:00
PROVIDERS: ATTEND Physician Assistant Medical
DX: E11.9 Type 2 diabetes mellitus without complications (principal)
CPT/HCPCS: 36415; 80053; 80061; 83036; 83721

== ENCOUNTER 2019-08-26 08:43 | Outpatient (CLI) | payer MEDICARE ==
[2019-08-26 13:07] LABS: ALBUMIN 4.4 g/dL (3.2-5.5); ALBUMIN/GLOBULIN RATIO 1.7 (1.0-2.2); ALKALINE PHOSPHATASE 59 IU/L (42-121); ALT ALANINE AMINOTRANSFERASE 17 IU/L (10-60); AST ASPARTATE AMINOTRANSFERASE 21 IU/L (10-42); BILIRUBIN,TOTAL 0.7 mg/dL (0.2-1.0); BUN - BLOOD UREA NITROGEN 20 mg/dL (6-20); CALCIUM 9.6 mg/dL (8.5-10.3); CARBON DIOXIDE - CO2 24 mmol/L (21-32); CHLORIDE 107 mmol/L (101-111); CHOL/HDL RATIO 2.2 (<4.4); CHOLESTEROL 121 mg/dL; CREATININE 0.7 mg/dL (0.4-1.0); GFR - MDRD 82 (>89); GLUCOSE 107 mg/dL (70-100); HDL CHOLESTEROL 55 mg/dL; LDL CHOLESTEROL,CALCULATED 52 mg/dL; LDL/HDL RATIO 0.9 (<4.4); SODIUM 140 mmol/L (135-145); VLDL CHOLESTEROL 14 mg/dL
== END 2019-08-26 23:59 | disposition home or self-care (01) ==
LOC: LAB.WCP 08:43
PROVIDERS: ATTEND Physician Assistant Medical
DX: E78.5 Hyperlipidemia, unspecified (principal)
CPT/HCPCS: 36415; 80053; 80061; 83721

== ENCOUNTER 2019-10-02 13:40 | Emergency (ER) | payer MEDICARE ==
--- NOTE | 2019-10-02 14:12 | ED Physician Documentation ---
History of Present Illness - Stated complaint Stated Complaint: GLF/SHOULDER/HEAD PAIN - Chief complaint Chief Complaint: General - History obtained from History obtained from: Patient (She had a simple trip and mechanical fall in her kitchen hitting her face on the ground. She injured her head, neck, left ribs and left shoulder. Also her left knee. She has a history of bilateral total knee replacements and is able to walk and bear weight. She declines pain medication on initial evaluation.) Review of Systems Constitutional: denies: Fever, Chills Nose: denies: Rhinorrhea / runny nose, Congestion Throat: denies: Sore throat Cardiac: denies: Chest pain / pressure, Palpitations Respiratory: denies: Dyspnea, Cough PD PAST MEDICAL HISTORY - Past Medical History Cardiovascular: Hypertension, High cholesterol Respiratory: None, Other Neuro: Peripheral neuropathy Endocrine/Autoimmune: Type 2 diabetes, HyPOthyroidism GI: GERD, GI bleed, Ulcers, Cholelithiasis : Chronic bladder infection, Kidney stones HEENT: Chronic vision loss, Chronic sinusitis Psych: Depression, Anxiety Musculoskeletal: Osteoarthritis, Chronic back pain, Other Derm: Eczema - Past Surgical History Past Surgical History: Yes General: Cholecystectomy, Colonoscopy, EGD 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, Other HEENT: Cataracts - Present Medications Home Medications: Ambulatory Orders Medication Instructions Recorded Confirmed Citalopram [CeleXA] 30 mg PO ONCE 12/19/12 06/26/18 Levothyroxine Sodium [Tirosint] 75 mcg PO DAILY 12/19/12 06/26/18 Losartan [Cozaar] 50 mg PO DAILY 12/19/12 06/26/18 Pantoprazole Sodium 40 mg PO BID 12/19/12 06/26/18 gemfibroziL [Lopid] 600 mg PO BIDAC 12/19/12 06/26/18 raNITIdine HCL [Ranitidine HCl] 300 mg PO HS PRN 12/19/12 06/26/18 Montelukast [Singulair] 10 mg ORAL DAILY 05/24/15 06/26/18 diphenhydrAMINE [Benadryl] 25 mg PO ONCE PRN 09/20/15 06/26/18 Ascorbic Acid [Vitamin C] 500 mg PO DAILY 08/21/16 06/26/18 Bacillus Coagulans [Probiotic] 1 cap PO DAILY 08/21/16 06/26/18 Cholecalciferol (Vitamin D3) 2,000 unit PO DAILY 08/21/16 06/26/18 [Vitamin D] Cranberry Fruit Extract [Cranberry] 4 cap PO DAILY 08/21/16 06/26/18 Flaxseed Oil 2 mg PO DAILY 08/21/16 06/26/18 Garlic 1,000 mg PO DAILY 08/21/16 06/26/18 Glucosamine/D3/Boswellia Jenny 2 tab PO DAILY 08/21/16 06/26/18 [Osteo Bi-Flex Tablet] Meloxicam 15 mg PO DAILY 08/21/16 06/26/18 Vitamin B Complex Vit C No.4 150 mg PO DAILY 08/21/16 06/26/18 [Super B Complex] Loperamide [Imodium] 2 mg PO QID PRN #10 capsule 10/25/17 06/26/18 Acetaminophen [Tylenol Arthritis] 1 - 2 each PO BID PRN 06/26/18 06/26/18 Hydrocortisone [Ala-Sascha] 1 applic TOP ONCE PRN MDD 1 06/26/18 06/26/18 Pro-Air 2 puffs INH Q4HR PRN MDD 6 06/26/18 06/26/18 Hydrocodone/Acetaminophen [[place] 1 each PO Q6H PRN #20 tablet 07/31/18 5-325 Tablet] methocarbamoL [Robaxin] 500 mg PO Q6H PRN #30 tablet 07/31/18 Oxycodone HCl/Acetaminophen 1 - 2 each PO Q6H PRN #14 tablet 10/02/19 [Percocet 5-325 mg Tablet] - Allergies Allergies/Adverse Reactions: Allergies Allergy/AdvReac Type Severity Reaction Status Date / Time metformin Allergy Intermediate Nausea Verified 10/02/19 13:57 amoxicillin trihydrate * Allergy Mild Nausea Verified 10/02/19 13:57 [From Augmentin] potassium clavulanate * Allergy Mild Nausea Verified 10/02/19 13:57 [From Augmentin] fluticasone [From Flonase] Allergy Edema Verified 10/02/19 13:57 Penicillins Allergy Edema Verified 10/02/19 13:57 Methaline blue Allergy Edema Uncoded 07/29/18 06:48 - Social History Does the pt smoke?: No Smoking Status: Never smoker Does the pt drink ETOH?: No Does the pt have substance abuse?: No - Immunizations Immunizations are current?: Yes - POLST Patient has POLST: No PD ED PE NORMAL - Vitals Vital signs reviewed: Yes - General General: Alert and oriented X 3, No acute distress - HEENT HEENT: PERRL, EOMI, Other (There is some early bruising in the left periorbital area but no bony tenderness of the face. ) - Neck Neck: Other (Mild tenderness of the mid low cervical spine, maintained in a c- collar pending imaging.) - Cardiac Cardiac: RRR, No murmur, Other (Mild tenderness to the left upper ribs) - Respiratory Respiratory: No respiratory distress, Clear bilaterally - Abdomen Abdomen: Non tender - Extremities Extremities: Other (She is tender over the left AC joint but has maintained range of motion at the left shoulder. Mild tenderness of the left knee without deformity or limited range of motion.) - Neuro Neuro: Alert and oriented X 3, No motor deficit, No sensory deficit, Normal speech Results - Vitals Vitals: Vital Signs - 24 hr 10/02/19 10/02/19 13:45 17:07 Temperature 36.7 C Heart Rate 71 64 Respiratory 16 15 Rate Blood Pressure 162/82 H 158/98 H O2 Saturation 96 98 Oxygen O2 Source Room air - Rads (name of study) CT head, cervical spine, chest Radiology: EMP read contemporaneously (NAD) 3 of the left shoulder and knee Radiology: EMP read contemporaneously (oa no frx) PD MEDICAL DECISION MAKING - ED course ED course: 73-year-old woman with left-sided injuries from a fall, thankfully all of her imaging was negative. The patient and family were counseled as to the diagnosis and need for follow- up. I counseled the patient with regard to signs and symptoms that would necessitate an urgent reevaluation in the emergency department. They understand they are welcome to return at any time if worse or if not improving as expected. This document was made in part using voice recognition software. While efforts are made to proofread this documents, sound alike and grammatical errors may occur. Departure - Departure Disposition: 01 Home, Self Care Clinical Impression: Fall from ground level Facial contusion Qualifiers: Encounter type: initial encounter Qualified Code(s): S00.83XA - Contusion of other part of head, initial encounter Neck strain Qualifiers: Encounter type: initial encounter Qualified Code(s): S16.1XXA - Strain of muscle, fascia and tendon at neck level, initial encounter Contusion of left shoulder Qualifiers: Encounter type: initial encounter Qualified Code(s): S40.012A - Contusion of left shoulder, initial encounter Chest wall contusion Qualifiers: Encounter type: initial encounter Laterality: left Qualified Code(s): S20.212A - Contusion of left front wall of thorax, initial encounter Contusion of left knee Qualifiers: Encounter type: initial encounter Qualified Code(s): S80.02XA - Contusion of left knee, initial encounter Condition: Good Record reviewed to determine appropriate education?: Yes Instructions: ED Contusion Soft Tissue, ED Contusion Chest Wall Prescriptions: Oxycodone HCl/Acetaminophen [Percocet 5-325 mg Tablet] 1 - 2 each PO Q6H PRN #14 tablet PRN Reason: pain Comments: Call your doctor to arrange a follow-up appointment, make the next available appointment. In the interim, return anytime if worse or if new symptoms develop. Do not drink or drive while taking narcotic pain medication. Note that many narcotic pain relievers also contain Tylenol/acetaminophen. Please ensure that your total dose of acetaminophen from all sources does not exceed 3 g (3000 mg) per day. You may get constipated while on this medication. Take a stool softener such as Colace twice a day while you are on it. Also add an [id number] laxative such as senna or MiraLAX on any day that you do not have a bowel movement. If you received a narcotic pain medication or sedative while in the emergency department, do not drive for the next 24 hours. Discharge Date/Time: 10/02/19 17:11
--- NOTE | 2019-10-02 15:09 | XRAY Report ---
Reason: shoulder inj Procedure Date: 10/02/2019 Accession Number: [id number] / [id number] Procedure: XR - Shoulder 3 View LT CPT Code: Final Report FULL RESULT: EXAM: LEFT SHOULDER RADIOGRAPHY EXAM DATE: 10/02/2019 02:34 PM. LEFT SHOULDER INJURY, FELL ONTO SHOULDER. CLINICAL HISTORY: Shoulder inj. COMPARISON: None. TECHNIQUE: 3 views. FINDINGS: Bones: Normal. No fracture or bone lesion. Joints: Left acromioclavicular marginal spurring. Soft tissues: The visualized hemithorax is unremarkable. No soft tissue swelling. IMPRESSION: 1. Left acromioclavicular degenerative changes. 2. No fracture or dislocation. [facility]
--- NOTE | 2019-10-02 15:11 | XRAY Report ---
Reason: knee inj Procedure Date: 10/02/2019 Accession Number: [id number] / [id number] Procedure: XR - Knee 2 View LT CPT Code: Final Report FULL RESULT: EXAM: LEFT KNEE RADIOGRAPHY EXAM DATE: 10/02/2019 02:39 PM. CLINICAL HISTORY: Knee injury, patient fell on left knee. COMPARISON: None. TECHNIQUE: 2 views. FINDINGS: Bones: Normal. No fractures or bone lesions. Joints: Prior left total knee arthroplasty. No david-prosthesis lucency to suggest loosening. Superior patellar spurring. No effusion. No subluxations. Soft Tissues: Normal. No soft tissue swelling. IMPRESSION: 1. Prior left total knee arthroplasty. 2. No fracture. [facility]
[2019-10-02] MEDS ORDERED: oxyCODONE 5 MG TABLET PO STA (15:12)
--- NOTE | 2019-10-02 16:12 | CT Report ---
Reason: fall, head /neck/chest inj Procedure Date: 10/02/2019 Accession Number: [id number] / [id number] Procedure: CT - HEAD WO CPT Code: Final Report FULL RESULT: EXAM: CT HEAD EXAM DATE: 10/02/2019 02:42 PM. CLINICAL HISTORY: Fall, head /neck/chest inj. pain. COMPARISON: HEAD W/O 06/03/2013 6:21 PM. TECHNIQUE: Multiaxial CT images were obtained from the foramen magnum to the vertex. Reformats: Sagittal and coronal. IV contrast: None. In accordance with CT protocol optimization, one or more of the following dose reduction techniques were utilized for this exam: automated exposure control, adjustment of mA and/or KV based on patient size, or use of iterative reconstructive technique. FINDINGS: Parenchyma: No intraparenchymal hemorrhage. No evidence of mass, midline shift, or CT findings of acute infarction. Lynn-white differentiation is distinct. Diffuse chronic microangiopathic white matter changes are evident. 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 Extraaxial Spaces: Normal for age. No subdural or epidural collections identified. Ventricles: The ventricles and cortical sulci are enlarged, consistent with age-related tissue loss. Sinuses and orbits: Imaged paranasal sinuses, orbits, and mastoids show no significant abnormality. Bones: No evidence of fracture or calvarial defect. Other: None. IMPRESSION: Generalized age-related cortical atrophic changes without evidence of acute intracranial abnormality. [facility]
--- NOTE | 2019-10-02 16:15 | CT Report ---
Reason: fall, head /neck/chest inj Procedure Date: 10/02/2019 Accession Number: [id number] / [id number] Procedure: CT - CERVICAL SPINE WO CPT Code: Final Report FULL RESULT: EXAM: CT CERVICAL SPINE WITHOUT CONTRAST DATE: 10/02/2019 02:42 PM. HISTORY: Fall, head /neck/chest inj. COMPARISONS: HEAD W/O 06/03/2013 6:21 PM. TECHNIQUE: Thin-section axial images were acquired of the cervical spine without contrast. Post-processing: Coronal and sagittal reformats. Other: None. In accordance with CT protocol optimization, one or more of the following dose reduction techniques were utilized for this exam: automated exposure control, adjustment of mA and/or KV based on patient size, or use of iterative reconstructive technique. FINDINGS: Alignment: There is no subluxation or scoliosis. Bones: Negative for acute fracture. No lytic or destructive bone lesion. There is multilevel degenerative disk and facet disease. Interspace Levels/Facets: C1-C2: There is mild spurring at the anterior C1 and C2 articulation. C2-C3: Bilateral facet spurring. Disk height maintained. No stenosis. C3-C4: Bilateral facet spurring. Disk height maintained. C4-C5: Disk height maintained. Bilateral facet spurring. C5-C6: Moderate disk height loss with disk osteophyte spurring causing mild central spinal canal stenosis. C6-C7: Mild to moderate disk degenerative disease with disk osteophyte spurring. C7-T1: Unremarkable. Musculature: Normal. No fatty atrophy. Other: The paravertebral and prevertebral soft tissues are unremarkable. No apical pneumothorax. IMPRESSION: 1. Negative for acute fracture and subluxation of the cervical spine. 2. Multilevel degenerative disk disease, greatest at C5-C7. [facility]
--- NOTE | 2019-10-02 16:17 | CT Report ---
Reason: fall, head /neck/chest inj Procedure Date: 10/02/2019 Accession Number: [id number] / [id number] Procedure: CT - CHEST WO CPT Code: Final Report FULL RESULT: EXAM: CT CHEST EXAM DATE: 10/02/2019 02:42 PM. CLINICAL HISTORY: Acute pain due to trauma. COMPARISONS: ABDOMEN/PELVIS W/ 10/25/2017 6:49 PM. TECHNIQUE: Routine helical CT imaging was performed through the chest. IV contrast: None. Reconstructions: Coronal and sagittal. In accordance with CT protocol optimization, one or more of the following dose reduction techniques were utilized for this exam: automated exposure control, adjustment of mA and/or KV based on patient size, or use of iterative reconstructive technique. FINDINGS: Lungs/Pleura: Minor subpleural fibrosis/scarring in the anterior right upper lobe consistent with postradiation changes seen. The lungs are otherwise clear. There is no effusion, pneumothorax, or pulmonary contusion. 3 mm peripheral right lower lobe pulmonary nodule is stable (image 241/4). Mediastinum: Heart size is normal with no pericardial effusion. Extensive calcified coronary artery disease is seen. No adenopathy. Bones: Right shoulder arthroplasty hardware is in place. Degenerative and minor scoliotic changes of the spine is seen. No acute osseous abnormality is identified. Visualized Abdomen: Post cholecystectomy clips are seen in the right upper quadrant region. Other: Right breast lumpectomy and excellent lymph node dissections are seen. No adenopathy. IMPRESSION: No acute cardiopulmonary or osseous abnormality demonstrated. RADIA
[2019-10-02 17:10] VITALS: BP 158/98
== END 2019-10-02 17:11 | disposition home or self-care (01) ==
LOC: ED 13:40
DX: S16.1XXA Strain of muscle, fascia and tendon at neck level, initial encounter (principal); S00.83XA Contusion of other part of head, initial encounter; S40.012A Contusion of left shoulder, initial encounter; S20.212A Contusion of left front wall of thorax, initial encounter; S80.02XA Contusion of left knee, initial encounter; W01.198A Fall on same level from slipping, tripping and stumbling with subsequent striking against other object, initial encounter; Y92.000 Kitchen of unspecified non-institutional (private) residence as the place of occurrence of the external cause; M50.322 Other cervical disc degeneration at C5-C6 level; M19.012 Primary osteoarthritis, left shoulder; Z96.653 Presence of artificial knee joint, bilateral; E11.42 Type 2 diabetes mellitus with diabetic polyneuropathy; I10 Essential (primary) hypertension
CPT/HCPCS: 70450; 71250; 72125; 73030; 73560; 99283; 99284; A9270

== ENCOUNTER 2020-01-13 14:10 | Outpatient (CLI) | payer MEDICARE ==
--- NOTE | 2020-01-13 17:27 | DEXA Report ---
Reason: POST MENOPAUSAL Procedure Date: 01/13/2020 Accession Number: [id number] / [id number] Procedure: DEX - Dexa Spine and/or Hip CPT Code: Final Report FULL RESULT: PROCEDURE: Dexa Spine and/or Hip INDICATIONS: POST MENOPAUSAL TECHNIQUE: Dual energy x-ray absorptiometry (DXA) was performed on a Stion System. Regions measured are the AP Spine, femoral neck, and if needed forearm. COMPARISON: None. FINDINGS: Lumbar Spine: Bone Mineral Density 1.260 g/cm/cm,T score 0.7, compared to 0.6 Left Hip: Bone Mineral Density 0.822 g/cm/cm,T score -1.5, compared to -1.3. Left Femoral Neck: Bone Mineral Density 0.816 g/cm/cm, T score -1.6, compared to -1.4. (T score greater or equal to -1.0: NORMAL) (T score from -1.1 to -2.4: OSTEOPENIA) (T score less than or equal to -2.5 to: OSTEOPOROSIS) Impression: 1. Minimal progression of osteopenia within the left hip and femoral neck as above. Patients with diagnosis of osteoporosis or osteopenia should have regular bone mineral density assessment. For those eligible for Medicare, routine testing is allowed once every 2 years. Testing frequency can be increased for patients who have rapidly progressing disease or for those who are receiving medical therapy to restore bone mass. Reviewed by: Elvia Norris MD on 01/13/2020 5:25 PM PDT Approved by: Elvia Norris MD on 01/13/2020 5:25 PM PDT Station ID: [id number]
== END 2020-01-13 14:11 | disposition home or self-care (01) ==
LOC: DI 14:10
PROVIDERS: ATTEND Physician Assistant Medical
DX: Z13.820 Encounter for screening for osteoporosis (principal); M85.89 Other specified disorders of bone density and structure, multiple sites
CPT/HCPCS: 77080

== ENCOUNTER 2020-02-25 10:15 | Outpatient (CLI) | payer MEDICARE ==
--- NOTE | 2020-02-27 15:13 | Mammography Report ---
BILATERAL DIGITAL SCREENING MAMMOGRAM 3D/2D: 02/25/2020 CLINICAL: Routine screening. Comparison is made to exams dated: 01/21/2019 mammogram, 10/24/2017 mammogram, and 08/09/2016 mammogram - [facility]. There are scattered fibroglandular elements in both breasts. There are benign calcifications in both breasts. There also are benign post operative findings in th e right breast. No significant masses, calcifications, or other findings are seen in either breast. There has been no significant interval change. IMPRESSION: BENIGN There is no mammographic evidence of malignancy. A 1 year screening mammogram is recommended. This exam was interpreted at Station ID: [id number]. NOTE: For mammograms, a report in lay terms will be sent to the patient. Approximately 15% of breast malignancies will not be visualized mammographically. In the management of a palpable breast mass, a negative mammogram must not discourage biopsy of a clinically suspicious lesion. Electronically Signed By: Clinton olea/eric:02/25/2020 11:23:22 ACR BI-RADS Category 2: Benign Finding(s) 3342F B -Scattered fibroglandular 2 Mammogram [id number] 1 year screening B
== END 2020-02-25 10:16 | disposition home or self-care (01) ==
LOC: DI.N 10:15
DX: Z12.31 Encounter for screening mammogram for malignant neoplasm of breast (principal)
CPT/HCPCS: 77063; 77067

== ENCOUNTER 2020-06-30 08:00 | Outpatient (CLI) | payer MEDICARE ==
[2020-06-30 12:10] LABS: BASOPHILS % (AUTO) 0.4 %; EOSINOPHILS # (AUTO) 0.2 10^3/uL (0.0-0.7); EOSINOPHILS % (AUTO) 2.5 %; HGB - HEMOGLOBIN 13.4 g/dL (12.0-16.0); LYMPHOCYTES # (AUTO) 1.9 10^3/uL (1.5-3.5); LYMPHOCYTES % (AUTO) 25.3 %; MEAN CORPUSCULAR HEMOGLOBIN 30.9 pg (27.0-31.0); MEAN CORPUSCULAR HGB CONC 32.1 g/dL (32.0-36.0); MEAN CORPUSCULAR VOLUME 96.3 fL (81.0-99.0); MEAN PLATELET VOLUME 11.5 fL (7.9-10.8); MONOCYTES # (AUTO) 0.5 10^3/uL (0.0-1.0); MONOCYTES % (AUTO) 6.3 %; NEUTROPHILS # (AUTO) 4.9 10^3/uL (1.5-6.6); NEUTROPHILS % (AUTO) 65.1 %; PLT - PLATELET COUNT 225 10^3/uL (130-450); RED BLOOD COUNT 4.34 10^6/uL (4.20-5.40); RED CELL DISTRIBUTION WIDTH 12.6 % (12.0-15.0); WHITE BLOOD COUNT 7.6 x10^3/uL (4.8-10.8)
[2020-06-30 12:28] LABS: ALBUMIN 4.5 g/dL (3.2-5.5); ALBUMIN/GLOBULIN RATIO 1.7 (1.0-2.2); ALKALINE PHOSPHATASE 64 IU/L (42-121); ALT ALANINE AMINOTRANSFERASE 21 IU/L (10-60); AST ASPARTATE AMINOTRANSFERASE 22 IU/L (10-42); BILIRUBIN,TOTAL 0.7 mg/dL (0.2-1.0); BUN - BLOOD UREA NITROGEN 20 mg/dL (6-20); CALCIUM 9.9 mg/dL (8.5-10.3); CARBON DIOXIDE - CO2 25 mmol/L (21-32); CHLORIDE 103 mmol/L (101-111); CHOL/HDL RATIO 3.3 (<4.4); CHOLESTEROL 151 mg/dL; CREATININE 0.8 mg/dL (0.4-1.0); GLUCOSE 112 mg/dL (70-100); HDL CHOLESTEROL 46 mg/dL; HEMOGLOBIN A1c% 5.7 % (4.27-6.07); LDL CHOLESTEROL,CALCULATED 77 mg/dL; LDL/HDL RATIO 1.7 (<4.4); SODIUM 135 mmol/L (135-145); TOTAL PROTEIN 7.2 g/dL (6.7-8.2); VLDL CHOLESTEROL 28 mg/dL
[2020-06-30 12:58] LABS: CREATININE,URINE 160.9 mg/dL; MICROALBUM/CREATININE RATIO,UR 4.4 ug/mg (<30.0); MICROALBUMIN,URINE 0.7 mg/dL (0-300.0)
== END 2020-06-30 23:59 | disposition home or self-care (01) ==
LOC: LAB.WCP 08:00
PROVIDERS: ATTEND Physician Assistant Medical
DX: E11.9 Type 2 diabetes mellitus without complications (principal); E03.9 Hypothyroidism, unspecified; I10 Essential (primary) hypertension
CPT/HCPCS: 36415; 80053; 80061; 82043; 82570; 83036; 83721; 84443; 85025

== ENCOUNTER 2020-10-28 08:47 | Outpatient (CLI) | payer MEDICARE ==
[2020-10-28 12:41] LABS: CALCIUM 10.1 mg/dL (8.5-10.3); CREATININE 0.7 mg/dL (0.4-1.0); POTASSIUM 4.8 mmol/L (3.5-5.0)
[2020-10-28 12:42] LABS: ESTIMATED AVERAGE GLUCOSE 111 mg/dL (70-100); HEMOGLOBIN A1c% 5.5 % (4.27-6.07)
== END 2020-10-28 23:59 | disposition home or self-care (01) ==
LOC: LAB.WCP 08:47
PROVIDERS: ATTEND Physician Assistant Medical
DX: E11.9 Type 2 diabetes mellitus without complications (principal)
CPT/HCPCS: 36415; 80048; 83036

== ENCOUNTER 2021-01-04 07:39 | Outpatient (CLI) | payer MEDICARE | END 2021-01-04 07:40 | disposition home or self-care (01) | LOC: LAB.N 07:39 | PROVIDERS: ATTEND Family Medicine | DX: R39.9 Unspecified symptoms and signs involving the genitourinary system (principal) | CPT/HCPCS: 87086; 87181 ==

== ENCOUNTER 2021-02-21 09:14 | Outpatient (CLI) | payer MEDICARE ==
[2021-02-21 11:35] LABS: ALBUMIN 4.6 g/dL (3.2-5.5); ALBUMIN/GLOBULIN RATIO 1.4 (1.0-2.2); ALKALINE PHOSPHATASE 74 IU/L (42-121); ALT ALANINE AMINOTRANSFERASE 16 IU/L (10-60); AST ASPARTATE AMINOTRANSFERASE 20 IU/L (10-42); BILIRUBIN,TOTAL 0.6 mg/dL (0.2-1.0); BUN - BLOOD UREA NITROGEN 13 mg/dL (6-20); CALCIUM 9.7 mg/dL (8.5-10.3); CARBON DIOXIDE - CO2 22 mmol/L (21-32); CHLORIDE 106 mmol/L (101-111); CHOL/HDL RATIO 2.6 (<4.4); CHOLESTEROL 131 mg/dL; CREATININE 0.6 mg/dL (0.4-1.0); GFR - MDRD 97 (>89); GLUCOSE 129 mg/dL (70-100); HDL CHOLESTEROL 50 mg/dL; LDL CHOLESTEROL,CALCULATED 56 mg/dL; LDL/HDL RATIO 1.1 (<4.4); POTASSIUM 3.9 mmol/L (3.5-5.0); SODIUM 137 mmol/L (135-145); TOTAL PROTEIN 7.8 g/dL (6.7-8.2); TRIGLYCERIDES 123 mg/dL; VLDL CHOLESTEROL 25 mg/dL
== END 2021-02-21 09:15 | disposition home or self-care (01) ==
LOC: LAB.N 09:14
PROVIDERS: ATTEND Physician Assistant Medical
DX: E11.9 Type 2 diabetes mellitus without complications (principal)
CPT/HCPCS: 36415; 80053; 80061; 83721

== ENCOUNTER 2021-03-03 06:37 | Outpatient (CLI) | payer MEDICARE ==
[2021-03-03] MEDS ORDERED: IOVERSOL 320 50 ML VIAL ONE (07:05)
[2021-03-03] MEDS ORDERED: IOPAMIDOL-300 100 ML VIAL ONE (07:05)
[2021-03-03] MEDS ORDERED: IOVERSOL 320 50 ML VIAL PO ONE (08:14)
[2021-03-03] MEDS ORDERED: IOPAMIDOL-300 100 ML VIAL IVP ONE (08:14)
--- NOTE | 2021-03-03 09:54 | CT Report ---
PROCEDURE: Abdomen/Pelvis W INDICATIONS: RIGHT LOWER QUAD ABD PAIN CONTRAST: IV CONTRAST: Isovue 300 ml: 100 PO CONTRAST: Optiray 320 ml50 TECHNIQUE: After the administration of oral and intravenous contrast, 5 mm thick sections acquired from the diap hragms to the symphysis. 5 mm thick coronal and sagittal reformats were acquired. For radiation dos e reduction, the following was used: automated exposure control, adjustment of mA and/or kV accordin g to patient size. COMPARISON: CT abdomen and pelvis 10/25/2017. FINDINGS: Image quality: Excellent. ABDOMEN: Lung bases: Minimal subpleural reticular thickening similar the prior CT. No pleural effusion. Heart size is normal. Solid organs: Liver and spleen are normal in size and enhancement. Gallbladder is surgically absent . Biliary system is non dilated. Pancreas enhances normally. No adrenal nodules. Kidneys demonstr ate normal size and enhancement, without hydronephrosis. Peritoneum and bowel: Bowel loops demonstrate normal wall thickness and caliber. Small duodenal dive rticulum. A few colonic diverticuli. Normal appendix. No free fluid or air. Nodes and vessels: No retroperitoneal or mesenteric adenopathy by size criteria. Aorta and inferior vena cava are normal in size. Miscellaneous: Tiny umbilical hernia. PELVIS: Genitourinary: Bladder is unremarkable. Uterus is absent. Miscellaneous: No inguinal hernias or adenopathy. Bones: No suspicious bony lesions. Mild DDD. No vertebral body compression fractures. IMPRESSION: 1. No acute abnormality identified to explain the patient's abdominal pain. Normal appendix. No hydro nephrosis. 2. Diverticulosis. 3. Postcholecystectomy and hysterectomy. Reviewed by: Sheng Desouza MD on 03/03/2021 9:52 AM PDT Approved by: Sheng Desouza MD on 03/03/2021 9:52 AM PDT Station ID: [id number]
== END 2021-03-03 06:38 | disposition home or self-care (01) ==
LOC: DI 06:37
PROVIDERS: ATTEND Physician Assistant Medical
DX: R10.31 Right lower quadrant pain (principal); K57.30 Diverticulosis of large intestine without perforation or abscess without bleeding; K57.10 Diverticulosis of small intestine without perforation or abscess without bleeding; Z90.49 Acquired absence of other specified parts of digestive tract; Z90.710 Acquired absence of both cervix and uterus
CPT/HCPCS: 74177; Q9967

== ENCOUNTER 2021-04-29 08:00 | Outpatient (CLI) | payer MEDICARE | END 2021-04-29 23:59 | disposition home or self-care (01) | LOC: LAB.N 08:00 | PROVIDERS: ATTEND Family Medicine | DX: R30.0 Dysuria (principal) | CPT/HCPCS: 87086; 87181 ==

== ENCOUNTER 2021-04-29 08:06 | Outpatient (CLI) | payer MEDICARE ==
[2021-04-29 12:33] LABS: ALBUMIN 4.8 g/dL (3.2-5.5); ALBUMIN/GLOBULIN RATIO 1.8 (1.0-2.2); ALKALINE PHOSPHATASE 76 IU/L (42-121); ALT ALANINE AMINOTRANSFERASE 16 IU/L (10-60); AST ASPARTATE AMINOTRANSFERASE 19 IU/L (10-42); BILIRUBIN,TOTAL 0.6 mg/dL (0.2-1.0); BUN - BLOOD UREA NITROGEN 14 mg/dL (6-20); CALCIUM 9.8 mg/dL (8.5-10.3); CARBON DIOXIDE - CO2 24 mmol/L (21-32); CHLORIDE 102 mmol/L (101-111); CHOL/HDL RATIO 2.1 (<4.4); CHOLESTEROL 105 mg/dL; CREATININE 0.7 mg/dL (0.4-1.0); GFR - MDRD 81 (>89); GLUCOSE 121 mg/dL (70-100); HDL CHOLESTEROL 49 mg/dL; LDL CHOLESTEROL,CALCULATED 37 mg/dL; LDL/HDL RATIO 0.8 (<4.4); POTASSIUM 4.3 mmol/L (3.5-5.0); SODIUM 138 mmol/L (135-145); TOTAL PROTEIN 7.4 g/dL (6.7-8.2); TRIGLYCERIDES 93 mg/dL; VLDL CHOLESTEROL 19 mg/dL
[2021-04-29 12:57] LABS: ESTIMATED AVERAGE GLUCOSE 120 mg/dL (70-100); HEMOGLOBIN A1c% 5.8 % (4.27-6.07)
== END 2021-04-29 23:59 | disposition home or self-care (01) ==
LOC: LAB.WCP 08:06
PROVIDERS: ATTEND Physician Assistant Medical
DX: E11.9 Type 2 diabetes mellitus without complications (principal)
CPT/HCPCS: 36415; 80053; 80061; 83036; 83721

== ENCOUNTER 2021-05-05 08:17 | Outpatient (CLI) | payer MEDICARE ==
--- NOTE | 2021-05-06 09:27 | Mammography Report ---
BILATERAL DIGITAL SCREENING MAMMOGRAM 3D/2D: 05/05/2021 CLINICAL: Routine screening. Personal history of right breast cancer. Comparison is made to exams dated: 02/25/2020 mammogram, 01/21/2019 mammogram, 10/26/2017 ultrasound biops y, 10/24/2017 mammogram, 10/15/2017 aspiration, and 03/29/2017 mammogram - [facility]. There are scattered fibroglandular elements in both breasts. There are benign calcifications in both breasts. There also are benign vascular calcifications in belén th breasts. Additionally, there are benign post operative findings in the right breast. No significant masses, calcifications, or other findings are seen in either breast. There has been no significant interval change. IMPRESSION: BENIGN There is no mammographic evidence of malignancy. A 1 year screening mammogram is recommended. This exam was interpreted at Station ID: [id number]. NOTE: For mammograms, a report in lay terms will be sent to the patient. Approximately 15% of breast malignancies will not be visualized mammographically. In the management of a palpable breast mass, a negative mammogram must not discourage biopsy of a clinically suspicious lesion. Electronically Signed By: Jose M Felipe M.D. ddp/eric:05/05/2021 09:09:15 ACR BI-RADS Category 2: Benign Finding(s) 3342F PARENCHYMAL PATTERN: (A) - The breast(s) demonstrate(s) scattered fibroglandular densities. BI-RADS CATEGORY: (2) - 2 RECOMMENDATION: (ANNUAL) - Recommend routine annual screening mammography. [id number] 1 year screening LATERALITY: (B)
== END 2021-05-05 08:18 | disposition home or self-care (01) ==
LOC: DI.N 08:17
DX: Z12.31 Encounter for screening mammogram for malignant neoplasm of breast (principal); Z85.3 Personal history of malignant neoplasm of breast

== ENCOUNTER 2021-06-11 08:00 | Outpatient (CLI) | payer MEDICARE | END 2021-06-11 23:59 | LOC: LAB.N 08:00 | PROVIDERS: ATTEND Family Medicine | DX: R39.9 Unspecified symptoms and signs involving the genitourinary system (principal) | CPT/HCPCS: 87086; 87181 ==

== ENCOUNTER 2021-06-14 11:08 | Day surgery (SDC) | payer MEDICARE ==
[2021-06-14] MEDS ORDERED: PROPOFOL 500 MG/50 ML 500 MG/50 ML VIAL ONE (11:26)
--- NOTE | 2021-06-14 11:47 | ANESTHESIA ---
Pre-Anesthesia VS, & Labs - Diagnosis diarrhea, n/v, hemorrhoids - Procedure EGD, Cscope w/hemorroid banding Height: 5 ft Weight (kg): 78.4 kg Body Mass Index: 33.7 BMI Classification: Obese - NPO >8 hours - Is Patient ?: No - Lab Results Lab results reviewed: Yes Home Medications and Allergies Home Medications: Ambulatory Orders Cyclobenzaprine [Flexeril] 10 mg PO TID PRN 06/14/21 Rosuvastatin Calcium [Crestor] 10 mg PO 06/14/21 Citalopram [CeleXA] 30 mg PO ONCE 12/19/12 Levothyroxine Sodium [Tirosint] 75 mcg PO DAILY 12/19/12 Losartan [Cozaar] 50 mg PO DAILY 12/19/12 Pantoprazole Sodium 40 mg PO BID 12/19/12 gemfibroziL [Lopid] 600 mg PO BIDAC 12/19/12 raNITIdine HCL [Ranitidine HCl] 300 mg PO HS PRN 12/19/12 Montelukast [Singulair] 10 mg ORAL DAILY 05/24/15 diphenhydrAMINE [Benadryl] 25 mg PO ONCE PRN 09/20/15 Ascorbic Acid [Vitamin C] 500 mg PO DAILY 08/21/16 Bacillus Coagulans [Probiotic] 1 cap PO DAILY 08/21/16 Cholecalciferol (Vitamin D3) [Vitamin D] 2,000 unit PO DAILY 08/21/16 Cranberry Fruit Extract [Cranberry] 4 cap PO DAILY 08/21/16 Flaxseed Oil 2 mg PO DAILY 08/21/16 Garlic 1,000 mg PO DAILY 08/21/16 Glucosamine/D3/Boswellia Jenny [Osteo Bi-Flex Tablet] 2 tab PO DAILY 08/21/16 Meloxicam 15 mg PO DAILY 08/21/16 Vitamin B Complex Vit C No.4 [Super B Complex] 150 mg PO DAILY 08/21/16 Acetaminophen [Tylenol Arthritis] 1 - 2 each PO BID PRN 06/26/18 Hydrocortisone [Ala-Sascha] 1 applic TOP ONCE PRN MDD 1 06/26/18 Pro-Air 2 puffs INH Q4HR PRN MDD 6 06/26/18 Allergies/Adverse Reactions: Allergies Allergy/AdvReac Type Severity Reaction Status Date / Time metformin Allergy Intermediate Nausea Verified 10/02/19 13:57 amoxicillin trihydrate * Allergy Mild Nausea Verified 10/02/19 13:57 [From Augmentin] potassium clavulanate * Allergy Mild Nausea Verified 10/02/19 13:57 [From Augmentin] duloxetine [From Cymbalta] Allergy Unknown Verified 10/03/19 07:17 fluticasone [From Flonase] Allergy Edema Verified 10/02/19 13:57 Penicillins Allergy Edema Verified 10/02/19 13:57 prednisone Allergy Unknown Verified 10/03/19 07:17 Methaline blue Allergy Edema Uncoded 07/29/18 06:48 Anes History & Medical History - Anesthetic History Anesthesia Complications: reports: No previous complications Family history of Anesthesia Complications: Denies Family history of Malignant Hyperthermia: Denies - Medical History Cardiovascular: reports: Hypertension, High cholesterol Pulmonary: reports: None, Other Gastrointestinal: reports: GERD, GI bleed, Ulcers, Cholelithiasis Urinary: reports: Chronic bladder infection, Kidney stones Neuro: reports: Peripheral neuropathy Musculoskeletal: reports: Osteoarthritis, Chronic back pain, Other Endocrine/Autoimmune: reports: Type 2 diabetes, HyPOthyroidism Skin: reports: Eczema Smoking Status: Never smoker - Surgical History General: reports: Cholecystectomy, Colonoscopy, EGD Eyes Ears Nose Throat (EENT): reports: Cataracts Urologic: reports: Ureterolithotomy (stones) Gynecologic: reports: section, Other Orthopedic: reports: Knee replacement Exam General: Alert, Oriented x3, Cooperative Dental: Partials Upper, Partials Lower Mouth Openin Fingerbreadth Neck Mobility: Normal Mallampati classification: II Thyromental Distance: 4-6 cm Respiratory: Lungs clear, Normal breath sounds, No respiratory distress Cardiovascular: Regular rate Neurological: Normal speech Mental/Cognitive Status: Alert/Oriented X3, Normal for patient Cognitive Status: Within normal limits Plan Anesthesia Type: Total IV Consent for Procedure(s) Verified and Reviewed: Yes Code Status: Attempt Resuscitation ASA classification: 2-Mild systemic disease Is this case an emergency?: No
[2021-06-14] MEDS ORDERED: LACTATED RINGERS 1,000 ML IV ONE (12:00)
[2021-06-14] MEDS ORDERED: ONDANSETRON 4 MG/2 ML VIAL ONE (12:01)
[2021-06-14] MEDS ORDERED: MIDAZOLAM 2 MG/2 ML VIAL ONE (12:11)
[2021-06-14] MEDS ORDERED: LIDOCAINE-MPF 2% 5 ML VIAL ONE (12:12)
[2021-06-14] MEDS ORDERED: PROPOFOL 200 MG/20 ML VIAL IVP ONE (12:44)
[2021-06-14] MEDS ORDERED: ePHEDrine 50 MG/ML VIAL IVP ONE (12:48)
[2021-06-14] MEDS ORDERED: PHENYLEPHRINE 10 MG/ML VIAL ONE (12:50)
[2021-06-14] MEDS ORDERED: LACTATED RINGERS 500 ML IV ONE (13:09)
--- NOTE | 2021-06-14 13:17 | OPERATIVE REPORT ---
Operative Report - General Procedure Date: 06/14/21 Planned Procedure: Hemorrhoid banding Pre-Op Diagnosis: Prolapsing internal hemorrhoids Procedure Performed: Hemorrhoid banding Post Op Diagnosis: Prolapsing internal hemorrhoids - Procedure Note Primary Surgeon: Fred Anesthesia Provider: CHLOE Rivers Anesthesia Technique: MAC Estimated Blood Loss (mL): 2 Indications: Symptomatic internal hemorrhoids Findings: A full martha of prolapsing internal hemorrhoids Complications: None apparent - Other Other Information/Narrative: Colonoscopy was completed immediately prior to the banding procedure. Timeout was done at the start of the colonoscopy procedure.The patient remained sedated with monitored anesthesia care at this time. All elements of the surgical safety checklist were followed before, during, and after this procedure. The anoscope with obturator was lubricated and placed in the patient's anal canal. The obturator was removed and the slots aligned to allow access to 3 column internal hemorrhoids. The device, the RF Code multi band ligator-short shot-was placed into the anal canal. The tip of the device was placed in contact with the tissue to be treated beginning at the 4 o'clock position. The suction port was closed. A single band was deployed and the suction port released.The band was noted to be in place.We next addressed the hemorrhoid complex at 7:00.The tip of the device was placed in contact with the tissue, the suction port covered, a band deployed, the suction port released. Again we were able to see that the band was in place.We next addressed the hemorrhoid at the 11 o'clock position. This was the smallest of the 3. The tip of the device was placed in contact with the tissue, the suction port covered, a band deployed, the suction port released. Again we were able to see that the band was in place.Examination of the anal count canal revealed all [address] The anoscope was removed and the procedure concluded. The patient tolerated the procedure well. She was allowed awaken from sedation and taken to the postanesthesia care unit in good condition.
[2021-06-14] MEDS: ACETAMINOPHEN 325 MG TABLET PO PRN (13:45)
[2021-06-14] MEDS ORDERED: SODIUM CHLORIDE FLUSH 0.9% 10 ML SYRINGE IVP PRN (14:05)
[2021-06-14] MEDS ORDERED: ONDANSETRON 4 MG/2 ML VIAL IVP PRN (14:05)
[2021-06-14] MEDS ORDERED: SODIUM CHLORIDE 0.9% 1,000 ML IV ONE (14:10)
[2021-06-14] MEDS ORDERED: HYDROmorphone 0.5 MG/0.5 ML SYRINGE IVP PRN (14:15)
[2021-06-14] MEDS ORDERED: ALBUTEROL NEB 2.5 MG/3 ML INH PRN (14:39)
[2021-06-14] MEDS ORDERED: LACTATED RINGERS 1,000 ML IV SCH (15:00)
[2021-06-14] MEDS: SODIUM CHLORIDE 0.9% 1,000 ML IV SCH ×2 (15:07→21:07)
--- NOTE | 2021-06-14 15:09 | ANESTHESIA POST OP EVALUATION ---
Anesthesia Post Eval - Post Anesthesia Eval Vitals: Last Vital Signs Temp 36.4 C L 06/14/21 14:10 Pulse 76 06/14/21 14:10 Resp 20 06/14/21 14:10 BP 95/69 06/14/21 14:10 Pulse Ox 91 L 06/14/21 14:10 CV Function Including HR & BP: Stable Pain Control: Satisfactory Nausea & Vomiting: Negative Mental Status: Baseline Respiratory Status: Airway Patent Hydration Status: Satisfactory Anesthesia Complications: None
[2021-06-14] MEDS: SODIUM CHLORIDE FLUSH 0.9% 10 ML SYRINGE IVP SCH (17:07)
[2021-06-14] MEDS ORDERED: levoFLOXacin 500 MG/100 ML 500 MG/100 ML BAG IV ONE (18:00)
[2021-06-14] MEDS ORDERED: MIN OIL/DIMETHICON/COCONUT OIL 92 GM TUBE TOP PRN (20:28)
[2021-06-14] MEDS ORDERED: oxyCODONE 5 MG TABLET PO PRN (20:35)
[2021-06-14] MEDS: ACETAMINOPHEN 1,000 MG/100 ML 100 ML IV SCH (22:24)
[2021-06-15] MEDS: SODIUM CHLORIDE FLUSH 0.9% 10 ML SYRINGE IVP SCH ×2 (00:14→09:48)
[2021-06-15] MEDS: ACETAMINOPHEN 1,000 MG/100 ML 100 ML IV SCH ×2 (03:41→10:51)
[2021-06-15] MEDS: SODIUM CHLORIDE 0.9% 1,000 ML IV SCH (06:02)
[2021-06-15] MEDS ORDERED: SODIUM CHLORIDE 0.9% 1,000 ML IV SCH (07:00)
[2021-06-15] MEDS ORDERED: LEVOTHYROXINE 75 MCG TABLET PO SCH (07:00)
[2021-06-15] MEDS ORDERED: PANTOPRAZOLE 40 MG TABLET PO SCH (07:00)
[2021-06-15 07:24] VITALS: BP 116/65
[2021-06-15 07:55] LABS: BASOPHILS % (AUTO) 0.2 %; EOSINOPHILS # (AUTO) 0.2 10^3/uL (0.0-0.7); EOSINOPHILS % (AUTO) 2.4 %; HCT - HEMATOCRIT 37.4 % (37.0-47.0); HGB - HEMOGLOBIN 12.2 g/dL (12.0-16.0); LYMPHOCYTES # (AUTO) 2.2 10^3/uL (1.5-3.5); LYMPHOCYTES % (AUTO) 33.5 %; MEAN CORPUSCULAR HEMOGLOBIN 32.1 pg (27.0-31.0); MEAN CORPUSCULAR HGB CONC 32.6 g/dL (32.0-36.0); MEAN CORPUSCULAR VOLUME 98.4 fL (81.0-99.0); MEAN PLATELET VOLUME 10.2 fL (7.9-10.8); MONOCYTES # (AUTO) 0.4 10^3/uL (0.0-1.0); MONOCYTES % (AUTO) 6.4 %; NEUTROPHILS # (AUTO) 3.8 10^3/uL (1.5-6.6); NEUTROPHILS % (AUTO) 57.2 %; PLT - PLATELET COUNT 178 10^3/uL (130-450); RED CELL DISTRIBUTION WIDTH 12.4 % (12.0-15.0); WHITE BLOOD COUNT 6.6 x10^3/uL (4.8-10.8)
[2021-06-15 08:08] LABS: ALBUMIN 4.1 g/dL (3.2-5.5); ALBUMIN/GLOBULIN RATIO 1.9 (1.0-2.2); BILIRUBIN,TOTAL 0.6 mg/dL (0.2-1.0); CALCIUM 9.1 mg/dL (8.5-10.3); CREATININE 0.7 mg/dL (0.4-1.0); POTASSIUM 3.8 mmol/L (3.5-5.0); TOTAL PROTEIN 6.3 g/dL (6.7-8.2)
[2021-06-15] MEDS: ACETAMINOPHEN 325 MG TABLET PO PRN (08:27)
[2021-06-15] MEDS ORDERED: LOSARTAN 50 MG TABLET PO SCH (09:00)
[2021-06-15] MEDS ORDERED: CITALOPRAM HYDROBROMIDE 20 MG TABLET PO SCH (09:00)
--- NOTE | 2021-06-15 13:02 | PROVIDER PROGRESS NOTE ---
Subjective - General Procedure Date: 06/14/21 Post Op Days: 1 Procedure Performed: Colonoscopy with multiple polypectomies - Review of Systems General: positive: No symptoms HEENT: positive: No symptoms Pulmonary: positive: No symptoms Cardiovascular: positive: No symptoms Gastrointestinal: positive: Abdominal pain (Much improved and only intermittent now) Genitourinary: positive: No symptoms - Other Other Information/Narrative: Phuong is feeling much better this morning. She reports she had a bowel movement last evening with some blood but she had another one this morning that was normal. Still a little bit liquidy from the prep but no blood. She is not h aving any pain now. She was able to tolerate liquids this morning and a soft diet at lunch. She would like to go home so that she can make Thanksgiving dinner. Objective - Patient Data Vital Signs: Vital Signs x48h Temp Pulse Resp BP Pulse Ox 06/15/21 07:23 37.0 C 64 18 116/65 93 Weight: Weight 06/13/21 06/14/21 06/15/21 23:59 23:59 23:59 Weight (kg) 78.4 kg Intake & Output: Intake and Output Totals x24h 06/13/21 06/14/21 06/15/21 23:59 23:59 23:59 Intake Total 2990 2430.417 Balance 2990 2430.417 - Lab Results Lab Results: 06/15/21 07:49 06/15/21 07:49 Other Lab Results: Lab Results x24hrs 06/15/21 06/15/21 06/15/21 Range/Units 07:49 07:49 07:19 WBC 6.6 (4.8-10.8) x10^3/uL RBC 3.80 L (4.20-5.40) 10^6/uL Hgb 12.2 (12.0-16.0) g/dL Hct 37.4 (37.0-47.0) % MCV 98.4 (81.0-99.0) fL MCH 32.1 H (27.0-31.0) pg MCHC 32.6 (32.0-36.0) g/dL RDW 12.4 (12.0-15.0) % Plt Count 178 (130-450) 10^3/uL MPV 10.2 (7.9-10.8) fL Neut # (Auto) 3.8 (1.5-6.6) 10^3/uL Lymph # (Auto) 2.2 (1.5-3.5) 10^3/uL [place] # (Auto) 0.4 (0.0-1.0) 10^3/uL Eos # (Auto) 0.2 (0.0-0.7) 10^3/uL Baso # (Auto) 0.0 (0.0-0.1) 10^3/uL Absolute Nucleated RBC 0.00 x10^3/uL Nucleated RBC % 0.0 /100WBC Sodium 140 (135-145) mmol/L Potassium 3.8 (3.5-5.0) mmol/L Chloride 108 (101-111) mmol/L Carbon Dioxide 25 (21-32) mmol/L Anion Gap 7.0 (6-13) BUN 10 (6-20) mg/dL Creatinine 0.7 (0.4-1.0) mg/dL Estimated GFR (MDRD) 81 L (>89) Glucose 98 (70-100) mg/dL POC Whole Bld Glucose 97 (70 - 100) mg/dL Calcium 9.1 (8.5-10.3) mg/dL Total Bilirubin 0.6 (0.2-1.0) mg/dL AST 17 (10-42) IU/L ALT 15 (10-60) IU/L Alkaline Phosphatase 53 (42-121) IU/L Total Protein 6.3 L (6.7-8.2) g/dL Albumin 4.1 (3.2-5.5) g/dL Globulin 2.2 (2.1-4.2) g/dL Albumin/Globulin Ratio 1.9 (1.0-2.2) 06/14/21 06/14/21 Range/Units 20:33 16:36 WBC (4.8-10.8) x10^3/uL RBC (4.20-5.40) 10^6/uL Hgb (12.0-16.0) g/dL Hct (37.0-47.0) % MCV (81.0-99.0) fL MCH (27.0-31.0) pg MCHC (32.0-36.0) g/dL RDW (12.0-15.0) % Plt Count (130-450) 10^3/uL MPV (7.9-10.8) fL Neut # (Auto) (1.5-6.6) 10^3/uL Lymph # (Auto) (1.5-3.5) 10^3/uL [place] # (Auto) (0.0-1.0) 10^3/uL Eos # (Auto) (0.0-0.7) 10^3/uL Baso # (Auto) (0.0-0.1) 10^3/uL Absolute Nucleated RBC x10^3/uL Nucleated RBC % /100WBC Sodium (135-145) mmol/L Potassium (3.5-5.0) mmol/L Chloride (101-111) mmol/L Carbon Dioxide (21-32) mmol/L Anion Gap (6-13) BUN (6-20) mg/dL Creatinine (0.4-1.0) mg/dL Estimated GFR (MDRD) (>89) Glucose (70-100) mg/dL POC Whole Bld Glucose 92 98 (70 - 100) mg/dL Calcium (8.5-10.3) mg/dL Total Bilirubin (0.2-1.0) mg/dL AST (10-42) IU/L ALT (10-60) IU/L Alkaline Phosphatase (42-121) IU/L Total Protein (6.7-8.2) g/dL Albumin (3.2-5.5) g/dL Globulin (2.1-4.2) g/dL Albumin/Globulin Ratio (1.0-2.2) - Current Medications Current Medications: Current Medications Generic Name Dose Route Start Last Admin Trade Name Freq PRN Reason Stop Dose Admin Acetaminophen 650 mg 06/14/21 13:45 06/15/21 08:27 Acetaminophen 325 Mg Tablet PO 650 mg Q4HR PRN Administration Pain or Fever > 38C (100.4F) Citalopram Hydrobromide 20 mg 06/15/21 09:00 06/15/21 09:48 Citalopram Hydrobromide 20 Mg Tablet PO Not Given DAILY JES Hydromorphone HCl 0.5 mg 06/14/21 14:15 06/14/21 17:08 Hydromorphone 0.5 Mg/0.5 Ml Syringe IVP 0.5 mg Q1HR PRN Administration Breakthrough Pain Acetaminophen 100 mls @ 400 mls/hr 06/14/21 22:00 06/15/21 10:51 Ofirmev IV Not Given Q6H [facility] Sodium Chloride 1,000 mls @ 83.333 mls/hr 06/15/21 07:00 06/15/21 07:31 Normal Saline 0.9% IV Not Given .Q12H [facility] Levothyroxine Sodium 75 mcg 06/15/21 07:00 06/15/21 06:02 Levothyroxine 75 Mcg Tablet PO 75 mcg QDAC JES Administration Losartan Potassium 100 mg 06/15/21 09:00 06/15/21 08:21 Losartan 50 Mg Tablet PO 50 mg DAILY JES Administration Ondansetron HCl 4 mg 06/14/21 14:05 06/14/21 17:10 Ondansetron 4 Mg/2 Ml Vial IVP 4 mg Q6H PRN Administration Nausea / Vomiting Oxycodone HCl 5 mg 06/14/21 20:35 06/14/21 21:06 Oxycodone 5 Mg Tablet PO 5 mg Q6HR PRN Administration PAIN Pantoprazole Sodium 40 mg 06/15/21 07:00 06/15/21 06:03 Pantoprazole 40 Mg Tablet PO Not Given QDAC [facility] Sodium Chloride 10 ml 06/14/21 17:00 06/15/21 09:48 Sodium Chloride Flush 0.9% 10 Ml Syringe IVP Not Given 0100,0900,1700 [facility] - Physical Exam General Appearance: positive: No acute distress, Alert Eyes Bilateral: positive: Normal inspection ENT: positive: ENT inspection nml Neck: positive: Nml inspection Respiratory: positive: Chest non-tender, No respiratory distress Cardiovascular: positive: Regular rate & rhythm, No murmur Abdomen: positive: Nml bowel sounds, Tenderness (Very mild) Neurologic/Psychiatric: positive: Oriented x3 ABX Reporting Has patient been on IV antibiotics over the past 48 hours?: Yes Impression/Plan - Problem List Problem List: Post polypectomy syndrome Discharged to her home in the care of her family today. I will send her home with 5 days of Augmentin twice daily as well as some oxycodone for pain control. She will continue to use her Tylenol as needed. I will see her back in my office in 2 weeks for follow-up.
--- NOTE | 2021-06-15 13:10 | Discharge Plan ---
Discharge Plan Problem Reviewed?: Yes Disposition: Home, Self Care Condition: Good Prescriptions: oxyCODONE [Roxicodone] 5 mg PO Q6HR PRN #7 tablet PRN Reason: Pain levoFLOXacin [Levaquin] 500 mg PO QDBREAKFAST #6 tablet Diet: Regular Shower Restrictions: No Driving Restrictions: No No Smoking: If you smoke, Please STOP! Call for help. Follow-up with: Megha Cm PA-C [Primary Care Provider] - Maia Ibarra MD [Provider Admit Priv/Credential] -
== END 2021-06-15 13:41 | disposition home or self-care (01) ==
LOC: SDS 11:08 → MS2 14:35 → SDS 06-15 13:41
PROVIDERS: ATTEND Surgery
PROC: 0DBE8ZX Excision of Large Intestine, Via Natural or Artificial Opening Endoscopic, Diagnostic (ICD-10-PCS; 2021-06-14)
PROC: 0DBL8ZZ Excision of Transverse Colon, Via Natural or Artificial Opening Endoscopic (ICD-10-PCS; 2021-06-14)
PROC: 0DB98ZX Excision of Duodenum, Via Natural or Artificial Opening Endoscopic, Diagnostic (ICD-10-PCS; 2021-06-14)
PROC: 0DB58ZX Excision of Esophagus, Via Natural or Artificial Opening Endoscopic, Diagnostic (ICD-10-PCS; 2021-06-14)
PROC: 0DB78ZX Excision of Stomach, Pylorus, Via Natural or Artificial Opening Endoscopic, Diagnostic (ICD-10-PCS; principal; 2021-06-14 12:30)
PROC: 0DBM8ZZ Excision of Descending Colon, Via Natural or Artificial Opening Endoscopic (ICD-10-PCS; 2021-06-14 12:30)
DX: R19.7 Diarrhea, unspecified (principal); R10.13 Epigastric pain; K64.8 Other hemorrhoids; R11.2 Nausea with vomiting, unspecified; D12.3 Benign neoplasm of transverse colon; K63.5 Polyp of colon; K29.50 Unspecified chronic gastritis without bleeding; K64.4 Residual hemorrhoidal skin tags; K29.80 Duodenitis without bleeding; K44.9 Diaphragmatic hernia without obstruction or gangrene; K21.00 Gastro-esophageal reflux disease with esophagitis, without bleeding; K57.30 Diverticulosis of large intestine without perforation or abscess without bleeding; R19.4 Change in bowel habit; F41.9 Anxiety disorder, unspecified; I10 Essential (primary) hypertension; E11.42 Type 2 diabetes mellitus with diabetic polyneuropathy; E03.9 Hypothyroidism, unspecified; E78.00 Pure hypercholesterolemia, unspecified; M79.7 Fibromyalgia; N30.10 Interstitial cystitis (chronic) without hematuria; G89.29 Other chronic pain; M54.9 Dorsalgia, unspecified; M19.90 Unspecified osteoarthritis, unspecified site; F40.240 Claustrophobia; E66.9 Obesity, unspecified; Z68.33 Body mass index [BMI] 33.0-33.9, adult; Z79.899 Other long term (current) drug therapy; Z87.11 Personal history of peptic ulcer disease; Z90.49 Acquired absence of other specified parts of digestive tract; K91.89 Other postprocedural complications and disorders of digestive system; K21.9 Gastro-esophageal reflux disease without esophagitis
CPT/HCPCS: 36415; 43239; 45380; 46221; 80053; 85025; A6250; A9270; J0131; J1170; J7120

== ENCOUNTER 2021-07-06 08:00 | Outpatient (CLI) | payer MEDICARE | END 2021-07-06 23:59 | LOC: LAB.N 08:00 | PROVIDERS: ATTEND Family Medicine | DX: R39.9 Unspecified symptoms and signs involving the genitourinary system (principal) | CPT/HCPCS: 87086 ==

== ENCOUNTER 2021-08-29 09:16 | Outpatient (CLI) | payer MEDICARE ==
[2021-08-29 12:28] LABS: ALBUMIN 4.6 g/dL (3.2-5.5); ALBUMIN/GLOBULIN RATIO 1.6 (1.0-2.2); ALKALINE PHOSPHATASE 73 IU/L (42-121); ALT ALANINE AMINOTRANSFERASE 18 IU/L (10-60); AST ASPARTATE AMINOTRANSFERASE 17 IU/L (10-42); BILIRUBIN,TOTAL 0.5 mg/dL (0.2-1.0); BUN - BLOOD UREA NITROGEN 14 mg/dL (6-20); CALCIUM 9.8 mg/dL (8.5-10.3); CARBON DIOXIDE - CO2 26 mmol/L (21-32); CHLORIDE 102 mmol/L (101-111); CHOLESTEROL 184 mg/dL; CREATININE 0.7 mg/dL (0.4-1.0); GFR - MDRD 81 (>89); GLUCOSE 118 mg/dL (70-100); HDL CHOLESTEROL 37 mg/dL; LDL CHOLESTEROL,CALCULATED 76 mg/dL; LDL/HDL RATIO 2.1 (<4.4); POTASSIUM 4.3 mmol/L (3.5-5.0); SODIUM 137 mmol/L (135-145); TOTAL PROTEIN 7.4 g/dL (6.7-8.2); TRIGLYCERIDES 354 mg/dL; VLDL CHOLESTEROL 71 mg/dL
[2021-08-29 12:37] LABS: ESTIMATED AVERAGE GLUCOSE 108 mg/dL (70-100); HEMOGLOBIN A1c% 5.4 % (4.27-6.07)
== END 2021-08-29 09:17 | disposition home or self-care (01) ==
LOC: LAB.N 09:16
PROVIDERS: ATTEND Physician Assistant Medical
DX: E11.9 Type 2 diabetes mellitus without complications (principal)
CPT/HCPCS: 36415; 80053; 80061; 83036; 83721

== ENCOUNTER 2021-09-02 10:47 | Outpatient (CLI) | payer MEDICARE | END 2021-09-02 23:59 | disposition home or self-care (01) | LOC: LAB.N 10:47 | PROVIDERS: ATTEND Family Medicine | DX: N39.0 Urinary tract infection, site not specified (principal) | CPT/HCPCS: 87077; 87086; 87181 ==

== ENCOUNTER 2021-09-29 20:00 | Emergency (ER) | payer MEDICARE ==
[2021-09-29 20:13] VITALS: BP 138/76
[2021-09-29] MEDS ORDERED: ONDANSETRON 4 MG/2 ML VIAL IVP STA ×2 (20:17→22:57)
[2021-09-29] MEDS ORDERED: HYDROmorphone 1 MG/ML CARPUJECT IVP STA (20:17)
[2021-09-29] MEDS ORDERED: SODIUM CHLORIDE 0.9% 1,000 ML IV STA (20:17)
[2021-09-29] MEDS ORDERED: IOVERSOL 320 100 ML VIAL IVP ONE ×2 (20:30→21:17)
[2021-09-29 20:33] LABS: BASOPHILS # (AUTO) 0.1 10^3/uL (0.0-0.1); BASOPHILS % (AUTO) 0.4 %; EOSINOPHILS # (AUTO) 0.2 10^3/uL (0.0-0.7); EOSINOPHILS % (AUTO) 1.6 %; HCT - HEMATOCRIT 42.9 % (37.0-47.0); HGB - HEMOGLOBIN 14.1 g/dL (12.0-16.0); LYMPHOCYTES # (AUTO) 3.2 10^3/uL (1.5-3.5); LYMPHOCYTES % (AUTO) 24.1 %; MEAN CORPUSCULAR HGB CONC 32.9 g/dL (32.0-36.0); MEAN CORPUSCULAR VOLUME 97.3 fL (81.0-99.0); MEAN PLATELET VOLUME 10.6 fL (7.9-10.8); MONOCYTES # (AUTO) 0.8 10^3/uL (0.0-1.0); NEUTROPHILS # (AUTO) 8.9 10^3/uL (1.5-6.6); NEUTROPHILS % (AUTO) 67.5 %; PLT - PLATELET COUNT 237 10^3/uL (130-450); RED BLOOD COUNT 4.41 10^6/uL (4.20-5.40); RED CELL DISTRIBUTION WIDTH 12.4 % (12.0-15.0); WHITE BLOOD COUNT 13.2 x10^3/uL (4.8-10.8)
[2021-09-29 20:42] LABS: BILIRUBIN,URINE NEGATIVE (NEGATIVE); GLUCOSE, URINE (UA) NEGATIVE (NEGATIVE); KETONES,URINE (UA) NEGATIVE (NEGATIVE); LEUKOCYTE ESTERASE, URINE NEGATIVE (NEGATIVE); NITRITE,URINE NEGATIVE (NEGATIVE); OCCULT BLOOD,URINE NEGATIVE (NEGATIVE); PROTEIN,URINE NEGATIVE (NEGATIVE); UROBILINOGEN,URINE 0.2 (NORMAL) E.U./dL (NORMAL)
[2021-09-29 20:43] LABS: CLARITY,URINE CLEAR (CLEAR)
--- NOTE | 2021-09-29 20:44 | ED Physician Documentation ---
History of Present Illness - Stated complaint Stated Complaint: ABD PX - Chief complaint Chief Complaint: Abd Pain - Additonal information Additional information: 75-year-old female presents emergency department for evaluation of lower abdom inal discomfort and nausea. She reports that for much of the last week she has felt excessively fatigued and occasionally nauseated. Yesterday she began having some lower midline pelvic discomfort which over the last 24 hours has now settled into the right side of her abdomen. She denies any fevers, dysuria urgency or frequency. She does have a history of sigmoid diverticulitis with microperforation in 2017. She states that this episode feels somewhat similar. She denies any melena hematochezia. Review of Systems Constitutional: reports: Fatigue. denies: Fever, Chills Eyes: reports: Reviewed and negative Ears: reports: Reviewed and negative Nose: reports: Reviewed and negative Throat: reports: Reviewed and negative Cardiac: reports: Reviewed and negative Respiratory: reports: Reviewed and negative GI: reports: Abdominal Pain, Nausea. denies: Vomiting, Constipation, Hematemesis, Bloody / black stool : denies: Dysuria, Frequency, Hesitancy Skin: reports: Reviewed and negative Musculoskeletal: reports: Reviewed and negative PD PAST MEDICAL HISTORY - Past Medical History Cardiovascular: Hypertension, High cholesterol Respiratory: None, Other Neuro: Peripheral neuropathy Endocrine/Autoimmune: Type 2 diabetes, HyPOthyroidism GI: GERD, GI bleed, Ulcers, Cholelithiasis : Chronic bladder infection, Kidney stones HEENT: Chronic vision loss, Chronic sinusitis Psych: Depression, Anxiety Musculoskeletal: Osteoarthritis, Chronic back pain, Other Derm: Eczema - Past Surgical History Past Surgical History: Yes General: Cholecystectomy, Colonoscopy, EGD 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, Other HEENT: Cataracts - Present Medications Home Medications: Ambulatory Orders Medication Instructions Recorded Confirmed Citalopram [CeleXA] 30 mg PO ONCE 12/19/12 06/26/18 Levothyroxine Sodium [Tirosint] 75 mcg PO DAILY 12/19/12 06/26/18 Losartan [Cozaar] 50 mg PO DAILY 12/19/12 06/26/18 Pantoprazole Sodium 40 mg PO BID 12/19/12 06/26/18 Ascorbic Acid [Vitamin C] 500 mg PO DAILY 08/21/16 06/26/18 Bacillus Coagulans [Probiotic] 1 cap PO DAILY 08/21/16 06/26/18 Cholecalciferol (Vitamin D3) 2,000 unit PO DAILY 08/21/16 06/26/18 [Vitamin D3] Cranberry Fruit Extract [Cranberry] 4 cap PO DAILY 08/21/16 06/26/18 Flaxseed Oil 2 mg PO DAILY 08/21/16 06/26/18 Garlic 1,000 mg PO DAILY 08/21/16 06/26/18 Glucosamine/D3/Boswellia Jenny 2 tab PO DAILY 08/21/16 06/26/18 [Osteo Bi-Flex Tablet] Vitamin B Complex Vit C No.4 150 mg PO DAILY 08/21/16 06/26/18 [Super B Complex] Acetaminophen [Tylenol Arthritis] 1 - 2 each PO BID PRN 06/26/18 06/26/18 Hydrocortisone [Ala-Sascha] 1 applic TOP ONCE PRN MDD 1 06/26/18 06/26/18 Pro-Air 2 puffs INH Q4HR PRN MDD 6 06/26/18 06/26/18 Oxycodone HCl/Acetaminophen 1 - 2 each PO Q6H PRN #14 tablet 10/02/19 [Percocet 5-325 mg Tablet] Cyclobenzaprine [Flexeril] 10 mg PO TID PRN 06/14/21 06/14/21 Rosuvastatin Calcium [Crestor] 10 mg PO 06/14/21 levoFLOXacin [Levaquin] 500 mg PO QDBREAKFAST #6 tablet 06/15/21 oxyCODONE [Roxicodone] 5 mg PO Q6HR PRN #7 tablet 06/15/21 - Allergies Allergies/Adverse Reactions: Allergies Allergy/AdvReac Type Severity Reaction Status Date / Time metformin Allergy Intermediate Nausea Verified 09/29/21 20:13 amoxicillin trihydrate * Allergy Mild Nausea Verified 09/29/21 20:13 [From Augmentin] potassium clavulanate * Allergy Mild Nausea Verified 09/29/21 20:13 [From Augmentin] duloxetine [From Cymbalta] Allergy Unknown Verified 09/29/21 20:13 fluticasone [From Flonase] Allergy Edema Verified 09/29/21 20:13 Penicillins Allergy Edema Verified 09/29/21 20:13 prednisone Allergy Unknown Verified 09/29/21 20:13 methylene blue AdvReac Edema Verified 09/29/21 20:13 - Social History Does the pt smoke?: No Smoking Status: Never smoker Does the pt drink ETOH?: No Does the pt have substance abuse?: No - Immunizations Immunizations are current?: Yes - POLST Patient has POLST: No PD ED PE NORMAL - General General: Alert and oriented X 3, No acute distress, Well developed/nourished (obese) - HEENT HEENT: PERRL - Neck Neck: Supple, no meningeal sign, No adenopathy - Cardiac Cardiac: RRR, No murmur - Respiratory Respiratory: No respiratory distress, Clear bilaterally - Abdomen Abdomen: Normal bowel sounds, Soft. No: Non tender (Focal tenderness on the right lower quadrant without guarding or rebound. No flank or CVA tenderness elicited. Nonperitoneal) - Back Back: No CVA TTP, No spinal TTP - Derm Derm: Normal color, No rash - Extremities Extremities: No deformity, No tenderness to palpate, Normal ROM s pain - Neuro Neuro: Alert and oriented X 3 Eye Opening: Spontaneous Motor: Obeys Commands Verbal: Oriented GCS Score: 15 - Psych Psych: Normal mood Results - Vitals Vitals: Vital Signs - 24 hr 09/29/21 20:07 Temperature 36.1 C L Heart Rate 98 Respiratory 18 Rate Blood Pressure 138/76 H O2 Saturation 100 Oxygen O2 Source Room air - Labs Labs: Laboratory Tests 09/29/21 09/29/21 09/29/21 20:22 20:22 20:27 WBC 13.2 H RBC 4.41 Hgb 14.1 Hct 42.9 MCV 97.3 MCH 32.0 H MCHC 32.9 RDW 12.4 Plt Count 237 MPV 10.6 Neut # (Auto) 8.9 H Lymph # (Auto) 3.2 [place] # (Auto) 0.8 Eos # (Auto) 0.2 Baso # (Auto) 0.1 Absolute Nucleated RBC 0.00 Nucleated RBC % 0.0 Sodium 137 Potassium 3.3 L Chloride 102 Carbon Dioxide 24 Anion Gap 11.0 BUN 15 Creatinine 0.7 Estimated GFR (MDRD) 81 L Glucose 135 H Calcium 9.6 Total Bilirubin 0.5 AST 22 ALT 18 Alkaline Phosphatase 74 Total Protein 7.8 Albumin 4.9 Globulin 2.9 Albumin/Globulin Ratio 1.7 Lipase 65 H Urine Color YELLOW Urine Clarity CLEAR Urine pH 6.0 Ur Specific [place] 1.010 Urine Protein NEGATIVE Urine Glucose (UA) NEGATIVE Urine Ketones NEGATIVE Urine Occult Blood NEGATIVE Urine Nitrite NEGATIVE Urine Bilirubin NEGATIVE Urine Urobilinogen 0.2 (NORMAL) Ur Leukocyte Esterase NEGATIVE Ur Microscopic Review NOT INDICATED Urine Culture Comments NOT INDICATED PD MEDICAL DECISION MAKING - ED course Complexity details: reviewed results, re-evaluated patient, considered differential, d/w patient ED course: 75-year-old female presents emergency department with 24 hours of lower abdominal pain. Initially midline and pelvic but now radiated to the right lower quadrant. She does have a history of diverticulitis with microperforation. On exam she has focal tenderness in the right lower quadrant without peritoneal signs, guarding or rebound. Screening labs are most significant for a mild leukocytosis of 13,000. Otherwise unremarkable electrolytes. Urine shows no signs of infection. Given age and history of CT scan was performed to evaluate for the possibility of diverticulitis, bowel obstruction or acute appendicitis. Patient was given a liter of IV fluids as well as Dilaudid and Zofran here in the emergency department with good improvement in her symptoms. 2200: Patient will be signed out to my colleague Dr. Franks to follow-up on CT imaging results and formal disposition Departure - Departure Clinical Impression: Lower abdominal pain
[2021-09-29 20:46] LABS: ALBUMIN 4.9 g/dL (3.2-5.5); ALBUMIN/GLOBULIN RATIO 1.7 (1.0-2.2); BILIRUBIN,TOTAL 0.5 mg/dL (0.2-1.0); CALCIUM 9.6 mg/dL (8.5-10.3); CREATININE 0.7 mg/dL (0.4-1.0); POTASSIUM 3.3 mmol/L (3.5-5.0); TOTAL PROTEIN 7.8 g/dL (6.7-8.2)
--- NOTE | 2021-09-29 22:21 | CT Report ---
PROCEDURE: Abdomen/Pelvis W INDICATIONS: lower abd pain; hx of microperforation CONTRAST: IV CONTRAST: Optiray 320 ml: 100 PO CONTRAST: *NO PO CONTRAST TECHNIQUE: After the administration of intravenous contrast, 5 mm thick sections acquired from the diaphragms to the symphysis. 5 mm thick coronal and sagittal reformats were acquired. For radiation dose reducti on, the following was used: automated exposure control, adjustment of mA and/or kV according to tiki ent size. COMPARISON: CT abdomen/pelvis 03/03/2021. FINDINGS: Image quality: Excellent. ABDOMEN: Lung bases: Lung bases are clear. Heart size is normal. Solid organs: Liver and spleen are normal in size and enhancement. Gallbladder is surgically absent . Biliary system is non dilated. Pancreas enhances normally. No adrenal nodules. Kidneys demonstr ate normal size and enhancement, without hydronephrosis. Peritoneum and bowel: Bowel multiple diverticula are seen in the colon. There is possible subtle fol d thickening and pericolonic fat stranding at the distal sigmoid colon that could represent mild dive rticulitis. No pneumoperitoneum. No focal fluid collection or abscess. No signs of bowel obstruction. No free fluid or air. Nodes and vessels: No retroperitoneal or mesenteric adenopathy by size criteria. Aorta and inferior vena cava are normal in size. Miscellaneous: Tiny periumbilical hernia. PELVIS: Genitourinary: Bladder wall thickness is normal. Status post hysterectomy. Miscellaneous: No inguinal hernias or adenopathy. Bones: No suspicious bony lesions. No vertebral body compression fractures. Multilevel degenerative changes are seen in the spine. Grade 1 anterolisthesis of L4 on L5 is seen secondary to facet hypert rophy. IMPRESSION: Colonic diverticulosis with subtle inflammatory changes adjacent to the distal sigmoid colon, which a re suspicious for mild acute uncomplicated diverticulitis. Reviewed by: Clinton Garcia MD on 09/29/2021 10:20 PM PST Approved by: Clinton Garcia MD on 09/29/2021 10:20 PM PST Station ID: [id number]
[2021-09-29] MEDS ORDERED: CIPROFLOXACIN 250 MG TABLET PO STA (22:56)
[2021-09-29] MEDS ORDERED: oxyCODONE/ACET 5/325 Prepack 4 PO STA (22:57)
[2021-09-29] MEDS ORDERED: metroNIDAZOLE 250 MG TABLET PO STA (22:57)
--- NOTE | 2021-09-29 23:05 | ED Physician Documentation ---
ED Addendum - Addendum Addendum: 09/29/21 22:59 Received sign out from MEDICAL SCHEDULER Quintin at end of her shift, pending CT results CT A/P interpreted by radiologist as: "Colonic diverticulosis with subtle inflammatory changes adjacent to the distal sigmoid colon, which are suspicious for mild acute uncomplicated diverticulitis. " I reviewed results w/ patient. She says she is feeling better although pain starting to return as well as nausea. Given cipro and flagyl PO as well as a second dose of IV zofran. given take-home pack of percocet. Follow up and return precautions discussed. I am prescribing a short course of short-acting opioid pain medication for this patient. 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 I have discussed that the opioids are for short term therapy only, and will not be refilled from the ED.
== END 2021-09-29 23:36 | disposition home or self-care (01) ==
LOC: ED 20:00
DX: K57.30 Diverticulosis of large intestine without perforation or abscess without bleeding (principal); R10.30 Lower abdominal pain, unspecified; I10 Essential (primary) hypertension; E11.42 Type 2 diabetes mellitus with diabetic polyneuropathy
CPT/HCPCS: 36415; 74177; 80053; 81003; 83690; 85025; 96374; 96375; 99283; 99284; A9270; J1170; Q9967; 81001; 87086

== ENCOUNTER 2022-03-28 08:56 | Outpatient (CLI) | payer MEDICARE ==
[2022-03-28 12:43] LABS: ALBUMIN 4.7 g/dL (3.2-5.5); ALBUMIN/GLOBULIN RATIO 1.7 (1.0-2.2); ALKALINE PHOSPHATASE 68 IU/L (42-121); ALT ALANINE AMINOTRANSFERASE 14 IU/L (10-60); AST ASPARTATE AMINOTRANSFERASE 21 IU/L (10-42); BILIRUBIN,TOTAL 0.6 mg/dL (0.2-1.0); BUN - BLOOD UREA NITROGEN 15 mg/dL (6-20); CARBON DIOXIDE - CO2 27 mmol/L (21-32); CHLORIDE 104 mmol/L (101-111); CHOL/HDL RATIO 2.7 (<4.4); CHOLESTEROL 137 mg/dL; CREATININE 0.7 mg/dL (0.4-1.0); GFR - MDRD 81 (>89); GLUCOSE 113 mg/dL (70-100); HDL CHOLESTEROL 51 mg/dL; LDL CHOLESTEROL,CALCULATED 47 mg/dL; LDL/HDL RATIO 0.9 (<4.4); POTASSIUM 4.1 mmol/L (3.5-5.0); SODIUM 139 mmol/L (135-145); TOTAL PROTEIN 7.5 g/dL (6.7-8.2); TRIGLYCERIDES 193 mg/dL; VLDL CHOLESTEROL 39 mg/dL
== END 2022-03-28 08:57 | disposition home or self-care (01) ==
LOC: LAB.N 08:56
PROVIDERS: ATTEND Physician Assistant Medical
DX: E78.5 Hyperlipidemia, unspecified (principal)
CPT/HCPCS: 36415; 80053; 80061; 83721

== ENCOUNTER 2022-04-04 08:00 | Outpatient (CLI) | payer MEDICARE ==
[2022-04-04 12:52] LABS: FECAL OCCULT BLOOD (FIT) POSITIVE (NEGATIVE)
== END 2022-04-04 23:59 | disposition home or self-care (01) ==
LOC: LAB.N 08:00
PROVIDERS: ATTEND Physician Assistant Medical
DX: K92.1 Melena (principal)
CPT/HCPCS: 82274

== ENCOUNTER 2022-04-04 08:27 | Outpatient (CLI) | payer MEDICARE ==
--- NOTE | 2022-04-04 21:46 | XRAY Report ---
PROCEDURE: Lumbar Spine 2 View INDICATIONS: LOW BACK PX TECHNIQUE: 3 views of the lumbar spine were acquired. COMPARISON: None. FINDINGS: Bones: 5 [id number]-[id number] vertebrae are present. 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 There is grade 1 anterolisthesis at L4-L5 injury to pars defect. No vertebral body compression fractures. No suspicious bony lesions. Degenerative disc disease, moderate at L4-L5, mild at L5-S1. There is severe facet arthropathy at L4-L5 and L5-S1. Soft tissues: Overlying bowel gas pattern is normal. No suspicious soft tissue calcifications. IMPRESSION: 1. 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 2. Moderate degenerative disease. 3. Severe facet arthropathy. 4. Grade 1 anterolisthesis of L4 on L5 secondary to pars defect. Reviewed by: Rex Alcaraz MD on 04/04/2022 9:45 PM PDT Approved by: Rex Alcaraz MD on 04/04/2022 9:45 PM PDT Station ID: [id number]
== END 2022-04-04 08:28 | disposition home or self-care (01) ==
LOC: DI.N 08:27
PROVIDERS: ATTEND Physician Assistant Medical
DX: M43.16 Spondylolisthesis, lumbar region (principal); M47.816 Spondylosis without myelopathy or radiculopathy, lumbar region; M47.817 Spondylosis without myelopathy or radiculopathy, lumbosacral region; M51.36 Other intervertebral disc degeneration, lumbar region; M51.37 Other intervertebral disc degeneration, lumbosacral region; K92.1 Melena
CPT/HCPCS: 82274

== ENCOUNTER 2022-04-08 21:01 | Emergency (ER) | payer MEDICARE ==
--- NOTE | 2022-04-08 21:15 | ED Physician Documentation ---
PD HPI ABD PAIN - Stated complaint Stated Complaint: ABD PX - Chief complaint Chief Complaint: Abd Pain - History obtained from History obtained from: Patient - History of Present Illness Timing - onset: How many days ago (5-6) Timing - details: Gradual onset, Still present (worse the past day) Quality: Cramping, Aching, Pain Location: RLQ, Suprapubic, LLQ Radiation: Lower back. No: Chest, Left flank, Right flank Improved by: No: BM Worsened by: Moving, Palpation. No: Breathing Associated symptoms: Nausea. No: Fever, Vomiting, Diarrhea, Constipation, Dysuria, Loss of appetite Similar symptoms before: Diagnosis (diverticulitis in the past) Recently seen: Not recently seen Review of Systems Constitutional: denies: Fever, Chills Nose: denies: Rhinorrhea / runny nose, Congestion Throat: denies: Sore throat Respiratory: denies: Cough GI: reports: Abdominal Pain, Nausea. denies: Vomiting, Constipation, Diarrhea, Bloody / black stool : denies: Dysuria, Frequency Skin: denies: Rash, Lesions PD PAST MEDICAL HISTORY - Past Medical History Cardiovascular: Hypertension, High cholesterol Respiratory: None, Other Neuro: Peripheral neuropathy Endocrine/Autoimmune: Type 2 diabetes, HyPOthyroidism GI: GERD, GI bleed, Ulcers, Cholelithiasis : Chronic bladder infection, Kidney stones HEENT: Chronic vision loss, Chronic sinusitis Psych: Depression, Anxiety Musculoskeletal: Osteoarthritis, Chronic back pain, Other Derm: Eczema - Past Surgical History Past Surgical History: Yes General: Cholecystectomy, Colonoscopy, EGD 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, Other HEENT: Cataracts - Present Medications Home Medications: Ambulatory Orders Medication Instructions Recorded Confirmed Citalopram [CeleXA] 30 mg PO ONCE 12/19/12 06/26/18 Levothyroxine Sodium [Tirosint] 75 mcg PO DAILY 12/19/12 06/26/18 Losartan [Cozaar] 50 mg PO DAILY 12/19/12 06/26/18 Pantoprazole Sodium 40 mg PO BID 12/19/12 06/26/18 Ascorbic Acid [Vitamin C] 500 mg PO DAILY 08/21/16 06/26/18 Bacillus Coagulans [Probiotic] 1 cap PO DAILY 08/21/16 06/26/18 Cholecalciferol (Vitamin D3) 2,000 unit PO DAILY 08/21/16 06/26/18 [Vitamin D3] Cranberry Fruit Extract [Cranberry] 4 cap PO DAILY 08/21/16 06/26/18 Flaxseed Oil 2 mg PO DAILY 08/21/16 06/26/18 Garlic 1,000 mg PO DAILY 08/21/16 06/26/18 Glucosamine/D3/Boswellia Jenny 2 tab PO DAILY 08/21/16 06/26/18 [Osteo Bi-Flex Tablet] Vitamin B Complex Vit C No.4 150 mg PO DAILY 08/21/16 06/26/18 [Super B Complex] Acetaminophen [Tylenol Arthritis] 1 - 2 each PO BID PRN 06/26/18 06/26/18 Hydrocortisone [Ala-Sascha] 1 applic TOP ONCE PRN MDD 1 06/26/18 06/26/18 Pro-Air 2 puffs INH Q4HR PRN MDD 6 06/26/18 06/26/18 Oxycodone HCl/Acetaminophen 1 - 2 each PO Q6H PRN #14 tablet 10/02/19 [Percocet 5-325 mg Tablet] Cyclobenzaprine [Flexeril] 10 mg PO TID PRN 06/14/21 06/14/21 Rosuvastatin Calcium [Crestor] 10 mg PO 06/14/21 levoFLOXacin [Levaquin] 500 mg PO QDBREAKFAST #6 tablet 06/15/21 oxyCODONE [Roxicodone] 5 mg PO Q6HR PRN #7 tablet 06/15/21 Ciprofloxacin HCl [Cipro] 500 mg PO BID #19 tablet 09/29/21 Ondansetron Odt [Zofran Odt] 4 mg TL Q6H PRN #10 tablet 09/29/21 metroNIDAZOLE [Flagyl] 500 mg PO TID 10 Days #30 tablet 09/29/21 oxyCODONE [Roxicodone] 5 mg PO Q4-6H PRN #14 tablet 09/29/21 HYDROcod/ACETAM 5/325 [[place] 5/325] 1 ea PO Q6H PRN #12 tablet 04/09/22 Naproxen 250 mg PO TID 5 Days #15 tablet 04/09/22 Ondansetron Odt [Zofran] 4 mg TL Q6H PRN #10 tablet 04/09/22 cephALEXin [Keflex] 500 mg PO TID 5 Days #15 cap 04/09/22 metroNIDAZOLE [Flagyl] 500 mg PO BID 5 Days #10 tablet 04/09/22 - Allergies Allergies/Adverse Reactions: Allergies Allergy/AdvReac Type Severity Reaction Status Date / Time amoxicillin [From Augmentin] Allergy Nausea Verified 04/08/22 21:14 clavulanic acid Allergy Nausea Verified 04/08/22 21:14 [From Augmentin] fluticasone [From Flonase] Allergy Edema Verified 04/08/22 21:14 methylene blue Allergy Edema Verified 04/08/22 21:14 Penicillins Allergy Edema Verified 04/08/22 21:14 - Social History Does the pt smoke?: No Smoking Status: Never smoker Does the pt drink ETOH?: No Does the pt have substance abuse?: No - Immunizations Immunizations are current?: Yes - POLST Patient has POLST: No PD ED PE NORMAL - Vitals Vital signs reviewed: Yes - General General: Alert and oriented X 3, No acute distress, Well developed/nourished - Neck Neck: Supple, no meningeal sign, No adenopathy - Cardiac Cardiac: RRR, No murmur - Respiratory Respiratory: Clear bilaterally - Abdomen Abdomen: Normal bowel sounds, Soft, Non distended, No organomegaly, Other (tender lower abd both left and right equally, with some local guarding but no rebound nor percussion tenderness. ) - Rectal Rectal: Deferred - Back Back: No CVA TTP - Derm Derm: Normal color, Warm and dry - Extremities Extremities: Normal ROM s pain, No edema, No calf tenderness / cord - Neuro Neuro: Alert and oriented X 3 Eye Opening: Spontaneous Motor: Obeys Commands Verbal: Oriented GCS Score: 15 Results - Vitals Vitals: Vital Signs - 24 hr 04/08/22 04/09/22 21:05 00:25 Temperature 36.3 C L Heart Rate 95 85 Respiratory 18 18 Rate Blood Pressure 150/73 H 117/58 L O2 Saturation 97 95 Oxygen O2 Source Room air - Labs Labs: Laboratory Tests 04/08/22 04/08/22 04/08/22 21:40 21:40 21:43 WBC 12.1 H RBC 4.23 Hgb 13.8 Hct 40.8 MCV 96.5 MCH 32.6 H MCHC 33.8 RDW 12.4 Plt Count 200 MPV 10.6 Neut # (Auto) 8.3 H Lymph # (Auto) 2.8 [place] # (Auto) 0.8 Eos # (Auto) 0.2 Baso # (Auto) 0.0 Absolute Nucleated RBC 0.00 Nucleated RBC % 0.0 Sodium 139 Potassium 4.2 Chloride 106 Carbon Dioxide 26 Anion Gap 7.0 BUN 17 Creatinine 0.7 Estimated GFR (MDRD) 81 L Glucose 143 H Calcium 9.9 Total Bilirubin 0.5 AST 19 ALT 13 Alkaline Phosphatase 83 Total Protein 7.8 Albumin 4.6 Globulin 3.2 Albumin/Globulin Ratio 1.4 Lipase 65 H Urine Color STRAW Urine Clarity CLEAR Urine pH 6.0 Ur Specific [place] 1.010 Urine Protein NEGATIVE Urine Glucose (UA) NEGATIVE Urine Ketones NEGATIVE Urine Occult Blood NEGATIVE Urine Nitrite NEGATIVE Urine Bilirubin NEGATIVE Urine Urobilinogen 0.2 (NORMAL) Ur Leukocyte Esterase NEGATIVE Ur Microscopic Review NOT INDICATED Urine Culture Comments NOT INDICATED - Rads (name of study) abd/pelvic CT Radiology: Prelim report reviewed (sigmoid diverticulitis without abscess nor perforation. ), See rad report PD MEDICAL DECISION MAKING - ED course Complexity details: reviewed results, re-evaluated patient (she is feeling much better with some IV medications. ), considered differential (diverticulitis vs appendicitis vs other. ), d/w patient Departure - Departure Disposition: 01 Home, Self Care Clinical Impression: Lower abdominal pain, Diverticulitis of sigmoid colon Condition: Stable Record reviewed to determine appropriate education?: Yes Instructions: ED Diverticulitis Follow-Up: Megha Cm PA-C [Primary Care Provider] - Prescriptions: metroNIDAZOLE [Flagyl] 500 mg PO BID 5 Days #10 tablet cephALEXin [Keflex] 500 mg PO TID 5 Days #15 cap Naproxen 250 mg PO TID 5 Days #15 tablet HYDROcod/ACETAM 5/325 [[place] 5/325] 1 ea PO Q6H PRN #12 tablet PRN Reason: Pain Ondansetron Odt [Zofran] 4 mg TL Q6H PRN #10 tablet PRN Reason: Nausea / Vomiting Comments: Your CT scan shows uncomplicated diverticulitis in the sigmoid colon which is in the lower abdomen. No signs of perforation or abscess. These can typically be treated with anti-inflammatories and antibiotics. Frequent fluids and stay well-hydrated. Use ondansetron every 6 hours if needed for nausea. Tylenol every 4-6 hours if needed for pain or hydrocodone/acetaminophen if needed for worse pain. Naproxen anti-inflammatory 3 times daily with food for 5 days along with cephalexin and metronidazole antibiotics as directed for 5 days. I would anticipate improvement over the next couple of days and resolution by 3 to 5 days. Recheck if not improving in that timeframe. Return if worsening pain, fevers, repetitive vomiting, bloody stool or other concerns. I transmitted your prescription to [facility] pharmacy. I am prescribing a short course of narcotic pain medication for you. These are potentially dangerous and addictive medications that should be used carefully. These medications may constipate you. Take an dxau-kju-tzlotmz stool softener such as docusate twice daily with plenty of water while taking these medications. If you go 24 hours without a bowel movement, take [id number]-fjo-vhmunrx MiraLAX, per package instructions. Do not drink or drive while taking these medications. If you received narcotic or sedating medications while in the emergency department do not drive for 24 hours. Store this medication in a safe, secure place and out of reach of children. It is a violation of federal law to give or sell this medication to another person or to use in a manner other than prescribed. The ED will not refill narcotic prescriptions, including prescriptions lost or stolen. You can dispose of unwanted medications at the [facility]'s office or at several pharmacies such as [facility]. Discharge Date/Time: 04/09/22 00:26
[2022-04-08] MEDS ORDERED: SODIUM CHLORIDE 0.9% 1,000 ML IV STA (21:34)
[2022-04-08] MEDS ORDERED: MORPHINE 10 MG/ML VIAL IVP STA (21:34)
[2022-04-08] MEDS ORDERED: KETOROLAC 15 MG/ML VIAL IVP STA (21:34)
[2022-04-08] MEDS ORDERED: ONDANSETRON 4 MG/2 ML VIAL IVP STA (21:34)
[2022-04-08 21:49] LABS: BASOPHILS % (AUTO) 0.2 %; EOSINOPHILS # (AUTO) 0.2 10^3/uL (0.0-0.7); EOSINOPHILS % (AUTO) 1.6 %; HCT - HEMATOCRIT 40.8 % (37.0-47.0); HGB - HEMOGLOBIN 13.8 g/dL (12.0-16.0); LYMPHOCYTES # (AUTO) 2.8 10^3/uL (1.5-3.5); LYMPHOCYTES % (AUTO) 23.1 %; MEAN CORPUSCULAR HEMOGLOBIN 32.6 pg (27.0-31.0); MEAN CORPUSCULAR HGB CONC 33.8 g/dL (32.0-36.0); MEAN CORPUSCULAR VOLUME 96.5 fL (81.0-99.0); MEAN PLATELET VOLUME 10.6 fL (7.9-10.8); MONOCYTES # (AUTO) 0.8 10^3/uL (0.0-1.0); MONOCYTES % (AUTO) 6.6 %; NEUTROPHILS # (AUTO) 8.3 10^3/uL (1.5-6.6); NEUTROPHILS % (AUTO) 68.1 %; PLT - PLATELET COUNT 200 10^3/uL (130-450); RED BLOOD COUNT 4.23 10^6/uL (4.20-5.40); RED CELL DISTRIBUTION WIDTH 12.4 % (12.0-15.0); WHITE BLOOD COUNT 12.1 x10^3/uL (4.8-10.8)
[2022-04-08 21:55] LABS: BILIRUBIN,URINE NEGATIVE (NEGATIVE); GLUCOSE, URINE (UA) NEGATIVE (NEGATIVE); KETONES,URINE (UA) NEGATIVE (NEGATIVE); LEUKOCYTE ESTERASE, URINE NEGATIVE (NEGATIVE); NITRITE,URINE NEGATIVE (NEGATIVE); OCCULT BLOOD,URINE NEGATIVE (NEGATIVE); PROTEIN,URINE NEGATIVE (NEGATIVE); UROBILINOGEN,URINE 0.2 (NORMAL) E.U./dL (NORMAL)
[2022-04-08 21:56] LABS: CLARITY,URINE CLEAR (CLEAR)
[2022-04-08 22:03] LABS: ALBUMIN 4.6 g/dL (3.2-5.5); ALBUMIN/GLOBULIN RATIO 1.4 (1.0-2.2); BILIRUBIN,TOTAL 0.5 mg/dL (0.2-1.0); CALCIUM 9.9 mg/dL (8.5-10.3); CREATININE 0.7 mg/dL (0.4-1.0); POTASSIUM 4.2 mmol/L (3.5-5.0); TOTAL PROTEIN 7.8 g/dL (6.7-8.2)
--- NOTE | 2022-04-08 23:43 | CT Report ---
PROCEDURE: Abdomen/Pelvis W INDICATIONS: lower abd pain increased days CONTRAST: IV CONTRAST: Optiray 320 ml: 100 PO CONTRAST: *NO PO CONTRAST TECHNIQUE: After the administration of contrast, 5 mm thick sections acquired from the diaphragms to the sym physis. 5 mm thick coronal and sagittal reformats were acquired. For radiation dose reduction, the following was used: automated exposure control, adjustment of mA and/or kV according to patient size . COMPARISON: Similar CT scanning 09/29/2021, 03/03/2021.. FINDINGS: Image quality: Excellent. ABDOMEN: Lung bases: Lung bases are clear. Heart size is normal. Solid organs: Liver and spleen are normal in size and enhancement. Gallbladder is surgically absent . Biliary system is non dilated. Pancreas enhances normally. No adrenal nodules. Kidneys demonstr ate normal size and enhancement, without hydronephrosis. Peritoneum and bowel: Bowel loops demonstrate normal wall thickness and caliber. No free fluid or a ir. Nodes and vessels: No retroperitoneal or mesenteric adenopathy by size criteria. Aorta and inferior vena cava are normal in size. Miscellaneous: No ventral hernias. PELVIS: Genitourinary: Bladder wall thickness is normal. Miscellaneous: No inguinal hernias or adenopathy. There is mild acute diverticulitis involving the posterior third of the sigmoid colon, best seen centered on CT series 3 image 62. No peridiverticular abscess is found. No abnormal free fluid throughout the peritoneal space is seen. Bones: No suspicious bony lesions. No vertebral body compression fractures. IMPRESSION: Acute diverticulitis, mild in severity, involving the posterior third of the sigmoid col on without associated peridiverticular abscess. Prior cholecystectomy. Reviewed by: Lucas Paula MD on 04/08/2022 11:42 PM PDT Approved by: Lucas Paula MD on 04/08/2022 11:42 PM PDT Station ID: [id number]
[2022-04-08] MEDS ORDERED: cefTRIAXone 1 GM VIAL IVP STA (23:48)
[2022-04-08] MEDS ORDERED: metroNIDAZOLE 250 MG TABLET PO STA (23:48)
[2022-04-08] MEDS ORDERED: ONDANSETRON ODT 4 MG Prepack 2 TL PRN (23:54)
[2022-04-08] MEDS ORDERED: HYDROcod/ACET 5/325 Prepack 4 PO STA (23:54)
[2022-04-09 00:26] VITALS: BP 117/58
== END 2022-04-09 00:26 | disposition home or self-care (01) ==
LOC: ED 21:01
DX: K57.32 Diverticulitis of large intestine without perforation or abscess without bleeding (principal)
CPT/HCPCS: 36415; 74177; 80053; 81003; 83690; 85025; 96361; 96374; 96375; 99284; A9270; Q9967; 81001; 87086

== ENCOUNTER 2022-05-22 10:59 | Outpatient (CLI) | payer MEDICARE ==
--- NOTE | 2022-05-22 13:48 | MRI Report ---
PROCEDURE: LUMBAR SPINE WO INDICATIONS: LOW BACK PAIN TECHNIQUE: Noncontrast sagittal T1 spin echo and T2 fast echo, sagittal STIR, axial T1 and T2 fast spin echo thr ough the lumbar spine. In cases with scoliosis, additional coronal T2 fast spin echo may be performe d. COMPARISON: 04/04/2022 FINDINGS: Image quality: Excellent Alignment: 2 to 3 mm of L3 on L4 anterolisthesis and 5 to 6 mm of L4 on L5 anterolisthesis. Marrow: No acute fracture. Scattered Modic changes. Suspected L4 pars defect. Cord: Unremarkable. Conus terminates in appropriate position. Soft tissues: No masses or fluid collections. Specific levels: T10-T11: Mild thecal sac narrowing. There is a small disc bulge and osteophyte compl ex. Mild to moderate bilateral neural foraminal narrowing. T11-T12: Small diffuse disc bulge. Mild bilateral neural foraminal narrowing. T12-L1: No stenosis. L1-L2: Small diffuse disc bulge and facet arthropathy. Mild right neural foraminal narrowing. L2-L3: Diffuse disc bulge and mild to moderate facet arthropathy. Mild central narrowing. Mild right neural foraminal narrowing. L3-L4: There is uncovering of the disc with a bulge. Moderate facet arthropathy. Moderate central lucía rowing affecting both subarticular recesses. Mild bilateral neural foraminal narrowing. L4-L5: There is uncovering of the disc with a bulge. Left greater than right facet arthropathy. Moder ate to severe thecal sac narrowing, particularly affecting the left subarticular recess displacing th e traversing left L5 nerve root. Moderate left neural foraminal narrowing. L5-S1 no stenosis IMPRESSION: Lower lumbar spinal listhesis is moderate spondylosis affecting L3-L4 and L4-L5. Moderate central lucía rowing at L3-L4 affecting the traversing L4 nerve roots. [id number] L4-L5 central narrowing, particularly affecting the left subarticular recess and displacing the traversing left L5 nerve root. Moderate left neural foraminal narrowing is also seen, affecting the exiting left L4 nerve root. Reviewed by: Sebastian Leary MD on 05/22/2022 1:47 PM PDT Approved by: Sebastian Leary MD on 05/22/2022 1:47 PM PDT Station ID: [id number]
== END 2022-05-22 11:00 | disposition home or self-care (01) ==
LOC: DI 10:59
PROVIDERS: ATTEND Physician Assistant Medical
DX: M43.16 Spondylolisthesis, lumbar region (principal); M51.36 Other intervertebral disc degeneration, lumbar region; M47.816 Spondylosis without myelopathy or radiculopathy, lumbar region; M48.061 Spinal stenosis, lumbar region without neurogenic claudication

== ENCOUNTER 2022-08-12 08:00 | Outpatient (CLI) | payer MEDICARE | END 2022-08-12 23:59 | disposition home or self-care (01) | LOC: LAB 08:00 | PROVIDERS: ATTEND Physician Assistant | DX: N39.0 Urinary tract infection, site not specified (principal) | CPT/HCPCS: 87086; 87181 ==

== ENCOUNTER 2022-08-28 09:45 | Outpatient (CLI) | payer MEDICARE | END 2022-08-28 10:30 | disposition home or self-care (01) | LOC: LAB.N 09:45 | PROVIDERS: ATTEND Physician Assistant | DX: R30.0 Dysuria (principal) | CPT/HCPCS: 87077; 87086; 87181 ==

== ENCOUNTER 2022-10-16 09:15 | Outpatient (CLI) | payer MEDICARE ==
[2022-10-16 13:44] LABS: ALBUMIN 4.7 g/dL (3.2-5.5); ALBUMIN/GLOBULIN RATIO 1.6 (1.0-2.2); ALKALINE PHOSPHATASE 60 IU/L (42-121); ALT ALANINE AMINOTRANSFERASE 19 IU/L (10-60); AST ASPARTATE AMINOTRANSFERASE 20 IU/L (10-42); BILIRUBIN,TOTAL 0.6 mg/dL (0.2-1.0); BUN - BLOOD UREA NITROGEN 20 mg/dL (6-20); CALCIUM 10.5 mg/dL (8.5-10.3); CARBON DIOXIDE - CO2 26 mmol/L (21-32); CHLORIDE 105 mmol/L (101-111); CHOL/HDL RATIO 3.4 (<4.4); CHOLESTEROL 138 mg/dL; CREATININE 0.7 mg/dL (0.4-1.0); GFR - MDRD 81 (>89); GLUCOSE 131 mg/dL (70-100); HDL CHOLESTEROL 41 mg/dL; LDL CHOLESTEROL,CALCULATED 57 mg/dL; LDL/HDL RATIO 1.4 (<4.4); POTASSIUM 4.3 mmol/L (3.5-5.0); SODIUM 138 mmol/L (135-145); TOTAL PROTEIN 7.7 g/dL (6.7-8.2); TRIGLYCERIDES 198 mg/dL; VLDL CHOLESTEROL 40 mg/dL
[2022-10-16 13:54] LABS: ESTIMATED AVERAGE GLUCOSE 117 mg/dL (70-100); HEMOGLOBIN A1c% 5.7 % (4.27-6.07)
== END 2022-10-16 09:16 | disposition home or self-care (01) ==
LOC: LAB.N 09:15
PROVIDERS: ATTEND Physician Assistant Medical
DX: E11.9 Type 2 diabetes mellitus without complications (principal)
CPT/HCPCS: 36415; 80053; 80061; 83036; 83721

== ENCOUNTER 2022-11-27 09:17 | Outpatient (CLI) | payer MEDICARE ==
[2022-11-27 14:24] LABS: THYROID STIMULATING HORMONE 1.05 uIU/mL (0.34-5.60)
== END 2022-11-27 09:18 | disposition home or self-care (01) ==
LOC: LAB.N 09:17
PROVIDERS: ATTEND Physician Assistant Medical
DX: E03.9 Hypothyroidism, unspecified (principal)
CPT/HCPCS: 36415; 84443

== ENCOUNTER 2022-12-11 10:07 | Outpatient (CLI) | payer MEDICARE ==
--- NOTE | 2022-12-11 11:54 | MRI Report ---
PROCEDURE: BRAIN WO INDICATIONS: TRANSIET GLOBAL AMNESIA TECHNIQUE: Noncontrast axial T1 spin echo, axial T2 fast spin echo, sagittal and axial FLAIR, coronal T2 fast sp in echo, axial gradient echo, axial diffusion and ADC through the brain. COMPARISON: Head CT dated 10/02/2019 FINDINGS: Image quality: Excellent. CSF Spaces: Basal cisterns are patent. No extra-axial fluid collections. Ventricles are normal in size and shape. Brain: No intracranial masses or hemorrhage. There is mild diffuse cerebral volume loss. Mild degre e of patchy high FLAIR signal within the periventricular and subcortical white matter. Lynn/white mat ter interface is normal. Brainstem appears normal. Diffusion-weighted images demonstrate no acute i schemic insult. No chronic ischemic insults. Normal intravascular flow voids are present. Skull and face: Calvarium has normal marrow signal. Orbits appear normal. Sinuses: Sinuses and mastoids are clear. IMPRESSION: 1. Volume loss and small vessel ischemic disease. 2. No acute process. No recent infarct. Reviewed by: Issa Carvalho MD on 12/11/2022 10:53 AM [facility] Approved by: Issa Carvalho MD on 12/11/2022 10:53 AM [facility] Station ID: [id number]
== END 2022-12-11 10:08 | disposition home or self-care (01) ==
LOC: DI 10:07
PROVIDERS: ATTEND Nurse Practitioner
DX: G45.4 Transient global amnesia (principal); G31.89 Other specified degenerative diseases of nervous system; I67.82 Cerebral ischemia

== ENCOUNTER 2022-12-20 13:43 | Outpatient (CLI) | payer MEDICARE | END 2022-12-20 13:44 | disposition home or self-care (01) | LOC: MAC.MOP 13:43 | PROVIDERS: ATTEND Physician Assistant Medical | DX: R00.2 Palpitations (principal) | CPT/HCPCS: 93242 ==

== ENCOUNTER 2023-01-04 11:30 | Outpatient (CLI) | payer MEDICARE | END 2023-01-04 11:31 | disposition home or self-care (01) | LOC: MAC.INF 11:30 | PROVIDERS: ATTEND Physician Assistant Medical | DX: I44.0 Atrioventricular block, first degree (principal); I49.1 Atrial premature depolarization; I49.3 Ventricular premature depolarization | CPT/HCPCS: 93244 ==

== ENCOUNTER 2023-04-26 09:35 | Outpatient (CLI) | payer MEDICARE | END 2023-04-26 09:36 | disposition home or self-care (01) | LOC: LAB.N 09:35 | PROVIDERS: ATTEND Physician Assistant Medical | DX: Z53.9 Procedure and treatment not carried out, unspecified reason (principal) | CPT/HCPCS: 36415; 80053; 80061; 83036; 83721 ==

== ENCOUNTER 2023-04-27 08:31 | Outpatient (CLI) | payer MEDICARE ==
[2023-04-27 12:35] LABS: ESTIMATED AVERAGE GLUCOSE 126 mg/dL (70-100)
[2023-04-27 12:37] LABS: ALBUMIN 4.6 g/dL (3.2-5.5); ALKALINE PHOSPHATASE 73 IU/L (42-121); ALT ALANINE AMINOTRANSFERASE 14 IU/L (10-60); AST ASPARTATE AMINOTRANSFERASE 16 IU/L (10-42); BILIRUBIN,TOTAL 0.4 mg/dL (0.2-1.0); BUN - BLOOD UREA NITROGEN 13 mg/dL (6-20); CALCIUM 10.2 mg/dL (8.5-10.3); CARBON DIOXIDE - CO2 27 mmol/L (21-32); CHLORIDE 107 mmol/L (101-111); CHOL/HDL RATIO 2.4 (<4.4); CHOLESTEROL 117 mg/dL; CREATININE 0.6 mg/dL (0.6-1.3); GFR - MDRD 97 (>89); GLUCOSE 132 mg/dL (74-104); HDL CHOLESTEROL 48 mg/dL; LDL CHOLESTEROL,CALCULATED 31 mg/dL; LDL/HDL RATIO 0.6 (<4.4); POTASSIUM 4.3 mmol/L (3.5-4.5); SODIUM 140 mmol/L (135-145); TOTAL PROTEIN 6.9 g/dL (6.4-8.9); TRIGLYCERIDES 188 mg/dL (48-352); VLDL CHOLESTEROL 38 mg/dL
== END 2023-04-27 08:32 | disposition home or self-care (01) ==
LOC: LAB.N 08:31
PROVIDERS: ATTEND Physician Assistant Medical
DX: E78.5 Hyperlipidemia, unspecified (principal); R73.9 Hyperglycemia, unspecified
CPT/HCPCS: 36415; 80053; 80061; 83036; 83721

== ENCOUNTER 2023-06-25 08:00 | Outpatient (CLI) | payer MEDICARE | END 2023-06-25 23:59 | disposition home or self-care (01) | LOC: LAB.N 08:00 | PROVIDERS: ATTEND Physician Assistant Medical | DX: R30.0 Dysuria (principal) | CPT/HCPCS: 87086; 87181 ==

== ENCOUNTER 2023-08-07 10:13 | Outpatient (CLI) | payer MEDICARE ==
--- NOTE | 2023-08-08 12:57 | Mammography Report ---
BILATERAL DIGITAL SCREENING MAMMOGRAM 3D/2D: 08/07/2023 CLINICAL: Routine screening. Personal history of right breast cancer. Comparison is made to exams dated: 05/05/2021 mammogram, 02/25/2020 mammogram, 01/21/2019 mammogram, 10/26 ultrasound biopsy, 10/24/2017 mammogram, and 10/15/2017 aspiration - [facility]. There are scattered areas of fibroglandular density in both breasts (category b / 25%-50% glandular t issue). There are benign calcifications in both breasts. There also are benign vascular calcifications in belén th breasts. Additionally, there are benign post operative findings in the right breast. No significant masses, calcifications, or other findings are seen in either breast. There has been no significant interval change. IMPRESSION: BENIGN There is no mammographic evidence of malignancy. A 1 year screening mammogram is recommended. This exam was interpreted at Station ID: [id number]. NOTE: For mammograms, a report in lay terms will be sent to the patient. Approximately 15% of breast malignancies will not be visualized mammographically. In the management of a palpable breast mass, a negative mammogram must not discourage biopsy of a clinically suspicious lesion. Electronically Signed By: Raul rizzo/eric:08/07/2023 16:36:41 ACR BI-RADS Category 2: Benign Finding(s) 3342F PARENCHYMAL PATTERN: (A) - The breast(s) demonstrate(s) scattered fibroglandular densities. BI-RADS CATEGORY: (2) - 2 Mammogram [id number] 1 year screening LATERALITY: (B)
== END 2023-08-07 10:14 | disposition home or self-care (01) ==
LOC: DI.N 10:13
DX: Z12.31 Encounter for screening mammogram for malignant neoplasm of breast (principal); Z85.3 Personal history of malignant neoplasm of breast; R92.323 Mammographic fibroglandular density, bilateral breasts; R92.1 Mammographic calcification found on diagnostic imaging of breast

== ENCOUNTER 2023-09-23 17:24 | Emergency (ER) | payer MEDICARE ==
[2023-09-23 17:47] LABS: BILIRUBIN,URINE NEGATIVE (NEGATIVE); GLUCOSE, URINE (UA) NEGATIVE (NEGATIVE); KETONES,URINE (UA) NEGATIVE (NEGATIVE); LEUKOCYTE ESTERASE, URINE NEGATIVE (NEGATIVE); NITRITE,URINE NEGATIVE (NEGATIVE); OCCULT BLOOD,URINE NEGATIVE (NEGATIVE); PROTEIN,URINE NEGATIVE (NEGATIVE); UROBILINOGEN,URINE 0.2 (NORMAL) E.U./dL (NORMAL)
[2023-09-23 17:48] LABS: CLARITY,URINE CLEAR (CLEAR)
[2023-09-23 18:04] LABS: BASOPHILS % (AUTO) 0.2 %; EOSINOPHILS # (AUTO) 0.2 10^3/uL (0.0-0.7); EOSINOPHILS % (AUTO) 1.7 %; HCT - HEMATOCRIT 41.7 % (37.0-47.0); HGB - HEMOGLOBIN 13.9 g/dL (12.0-16.0); LYMPHOCYTES # (AUTO) 2.8 10^3/uL (1.5-3.5); LYMPHOCYTES % (AUTO) 32.1 %; MEAN CORPUSCULAR HEMOGLOBIN 31.7 pg (27.0-31.0); MEAN CORPUSCULAR HGB CONC 33.3 g/dL (32.0-36.0); MEAN PLATELET VOLUME 10.8 fL (7.9-10.8); MONOCYTES # (AUTO) 0.6 10^3/uL (0.0-1.0); MONOCYTES % (AUTO) 7.1 %; NEUTROPHILS # (AUTO) 5.1 10^3/uL (1.5-6.6); NEUTROPHILS % (AUTO) 58.6 %; PLT - PLATELET COUNT 208 10^3/uL (130-450); RED BLOOD COUNT 4.39 10^6/uL (4.20-5.40); RED CELL DISTRIBUTION WIDTH 12.3 % (12.0-15.0); WHITE BLOOD COUNT 8.6 x10^3/uL (4.8-10.8)
[2023-09-23 18:21] LABS: ALBUMIN 4.7 g/dL (3.2-5.5); ALBUMIN/GLOBULIN RATIO 1.9 (1.0-2.2); BILIRUBIN,TOTAL 0.3 mg/dL (0.2-1.0); CALCIUM 10.6 mg/dL (8.5-10.3); CREATININE 0.7 mg/dL (0.6-1.3); POTASSIUM 3.5 mmol/L (3.5-4.5); TOTAL PROTEIN 7.2 g/dL (6.4-8.9)
[2023-09-23] MEDS ORDERED: IOVERSOL 320 100 ML VIAL IVP ONE (19:39)
[2023-09-23] MEDS: IOVERSOL 320 100 ML VIAL IVP ONE (20:24)
--- NOTE | 2023-09-23 20:28 | ED Physician Documentation ---
History of Present Illness - Stated complaint Stated Complaint: LOWER ABD/BACK PX - Chief complaint Chief Complaint: Abd Pain - History obtained from History obtained from: Patient - History of Present Illness Timing: How many days ago (several) Pain level max: 5 Pain level now: 5 - Additonal information Additional information: Patient is a 77-year-old female who presents to the emergency department left lower quadrant abdominal pain. This been ongoing intermittently for several days. She states that she has a longstanding history of recurrent diverticulitis. Also has diverticulosis. Has been seeing a surgeon in [place] to discuss partial colectomy. She is concerned that it is becoming infected again. She also states that she had low back pain earlier today, felt like a spasming. Nonradiating. No loss of bowel or bladder control. No numbness or tingling. States that she took a muscle relaxant and her back is feeling better. Denies any trauma. No fevers. No chills. No IV drug use. Review of Systems Constitutional: denies: Fever, Chills Cardiac: denies: Palpitations Respiratory: denies: Cough GI: reports: Diarrhea (mild loose stools). denies: Vomiting : denies: Dysuria, Frequency, Hesitancy Skin: denies: Rash Musculoskeletal: denies: Neck pain, Back pain Neurologic: denies: Focal weakness, Numbness, Headache PD PAST MEDICAL HISTORY - Past Medical History Past Medical History: Yes Cardiovascular: Hypertension, High cholesterol Respiratory: None, Other Neuro: Peripheral neuropathy Endocrine/Autoimmune: Type 2 diabetes, HyPOthyroidism GI: GERD, GI bleed, Ulcers, Cholelithiasis : Chronic bladder infection, Kidney stones HEENT: Chronic vision loss, Chronic sinusitis Psych: Depression, Anxiety Musculoskeletal: Osteoarthritis, Chronic back pain, Other Derm: Eczema - Past Surgical History Past Surgical History: Yes General: Cholecystectomy, Colonoscopy, EGD Ortho: Knee replacement /HOOP BENDER TANK: section, Other HEENT: Cataracts - Present Medications Home Medications: Ambulatory Orders Medication Instructions Recorded Confirmed Levothyroxine Sodium [Tirosint] 75 mcg PO DAILY 12/19/12 09/23/23 Losartan [Cozaar] 50 mg PO BID 12/19/12 09/23/23 Pantoprazole Sodium 40 mg PO BID 12/19/12 09/23/23 Ascorbic Acid [Vitamin C] 500 mg PO DAILY 08/21/16 09/23/23 Bacillus Coagulans [Probiotic] 1 cap PO DAILY 08/21/16 09/23/23 Cholecalciferol (Vitamin D3) 2,000 unit PO DAILY 08/21/16 09/23/23 [Vitamin D3] Cranberry Fruit Extract [Cranberry] 4 cap PO DAILY 08/21/16 09/23/23 Flaxseed Oil 2 mg PO DAILY 08/21/16 09/23/23 Garlic 1,000 mg PO DAILY 08/21/16 09/23/23 Acetaminophen [Tylenol Arthritis] 1 - 2 each PO BID PRN 06/26/18 09/23/23 Cyclobenzaprine [Flexeril] 10 mg PO TID PRN 06/14/21 09/23/23 Rosuvastatin Calcium [Crestor] 10 mg PO QPM 06/14/21 09/23/23 Buspirone HCl 10 mg PO BID 09/23/23 09/23/23 Citalopram Hydrobromide 40 mg PO DAILY 09/23/23 09/23/23 [Citalopram HBr] Glucosamine/D3/Boswellia Jenny 1 each PO DAILY 09/23/23 09/23/23 [Osteo Bi-Flex Tablet] HYDROcod/ACETAM 5/325 [[place] 5/325] 1 - 2 ea PO Q6H PRN #14 tablet 09/23/23 Loratadine [Allergy Relief] 10 mg PO DAILY 09/23/23 09/23/23 Multivitamin 1 tab PO DAILY 09/23/23 09/23/23 Sulfamethox/Trimeth 800/160 1 each PO BID #20 tablet 09/23/23 [Bactrim Ds 800/160] diphenhydrAMINE [Benadryl] 25 mg PO HS PRN 09/23/23 09/23/23 metroNIDAZOLE [Flagyl] 500 mg PO TID #30 tablet 09/23/23 - Allergies Allergies/Adverse Reactions: Allergies Allergy/AdvReac Type Severity Reaction Status Date / Time amoxicillin [From Augmentin] Allergy Nausea Verified 09/23/23 17:36 clavulanic acid Allergy Nausea Verified 09/23/23 17:36 [From Augmentin] fluticasone [From Flonase] Allergy Edema Verified 09/23/23 17:36 methylene blue Allergy Edema Verified 09/23/23 17:36 Penicillins Allergy Edema Verified 09/23/23 17:36 - Social History Does the pt smoke?: No Smoking Status: Never smoker Does the pt drink ETOH?: No Does the pt have substance abuse?: No - Immunizations Immunizations are current?: Yes - POLST Patient has POLST: No PD ED PE NORMAL - Vitals Vital signs reviewed: Yes - General General: Alert and oriented X 3, No acute distress - HEENT HEENT: PERRL - Neck Neck: Supple, no meningeal sign - Cardiac Cardiac: RRR - Respiratory Respiratory: No respiratory distress, Clear bilaterally - Abdomen Abdomen: Soft, Non distended, Other (Mild tenderness palpation left lower quadrant. No peritoneal signs.) - Back Back: No spinal TTP (No midline tenderness to palpation or percussion. No step- off or deformity. This is over the entirety of the thoracic and lumbar spine. Mild paraspinal spasm bilateral lower lumbar) - Derm Derm: Warm and dry - Extremities Extremities: No edema, No calf tenderness / cord - Neuro Neuro: Alert and oriented X 3, No motor deficit, No sensory deficit, Other (Normal bilateral lower extremity patellar and ankle jerk reflexes. Normal great toe extension bilaterally. no saddle anesthesia) - Psych Psych: Normal mood, Normal affect Results - Vitals Vitals: Vital Signs - 24 hr 09/23/23 09/23/23 17:29 19:50 Temperature 36.4 C L Heart Rate 86 76 Respiratory 16 16 Rate Blood Pressure 130/72 126/82 H O2 Saturation 97 94 Oxygen O2 Source Room air - Labs Labs: Laboratory Tests 09/23/23 09/23/23 09/23/23 17:42 17:59 17:59 WBC 8.6 RBC 4.39 Hgb 13.9 Hct 41.7 MCV 95.0 MCH 31.7 H MCHC 33.3 RDW 12.3 Plt Count 208 MPV 10.8 Neut # (Auto) 5.1 Lymph # (Auto) 2.8 [place] # (Auto) 0.6 Eos # (Auto) 0.2 Baso # (Auto) 0.0 Absolute Nucleated RBC 0.00 Nucleated RBC % 0.0 Sodium 138 Potassium 3.5 Chloride 105 Carbon Dioxide 26 Anion Gap 7.0 BUN 16 Creatinine 0.7 Estimated GFR (MDRD) 81 L Glucose 147 H Calcium 10.6 H Total Bilirubin 0.3 AST 15 ALT 12 Alkaline Phosphatase 86 Total Protein 7.2 Albumin 4.7 Globulin 2.5 Albumin/Globulin Ratio 1.9 Lipase 99 H Urine Color YELLOW Urine Clarity CLEAR Urine pH 6.0 Ur Specific [place] 1.010 Urine Protein NEGATIVE Urine Glucose (UA) NEGATIVE Urine Ketones NEGATIVE Urine Occult Blood NEGATIVE Urine Nitrite NEGATIVE Urine Bilirubin NEGATIVE Urine Urobilinogen 0.2 (NORMAL) Ur Leukocyte Esterase NEGATIVE Ur Microscopic Review NOT INDICATED Urine Culture Comments NOT INDICATED - Rads (name of study) CT abd/pelvis Relevant Findings:: Final report received, See rad report PD Medical Decision Making - ED course Complexity details: reviewed results, re-evaluated patient, considered differential, d/w patient ED course: 77-year-old female with mild diverticulitis on CT scan. Discussed risk and benefits of antibiotic therapy. Patient has had a perforation in the past and request antibiotic therapy. Accepts the risk of C. difficile diarrhea. Patient was given Toradol and her back pain improved. Will place on pain medication and antibiotics for home. Recommend she follow-up with her PCP for further care. Patient is well-appearing, nontoxic. Afebrile. No focal neurological deficits. No evidence of cauda equina, epidural abscess. Patient counseled regarding sig ns and symptoms for which I believe and urgent re-evaluation would be necessary. Patient with good understanding of and agreement to plan and is comfortable going home at this time This document was made in part using voice recognition software. While efforts are made to proofread this document, sound alike and grammatical errors may occur. Departure - Departure Disposition: 01 Home, Self Care Clinical Impression: Back spasm, Diverticulitis Condition: Good Instructions: ED Spasm Back No Trauma, ED Diverticulitis Follow-Up: Megha Cm PA-C [Primary Care Provider] - Within 1 week Prescriptions: Sulfamethox/Trimeth 800/160 [Bactrim Ds 800/160] 1 each PO BID #20 tablet metroNIDAZOLE [Flagyl] 500 mg PO TID #30 tablet HYDROcod/ACETAM 5/325 [[place] 5/325] 1 - 2 ea PO Q6H PRN #14 tablet PRN Reason: Pain Comments: [facility] is not currently accepting electronic prescriptions, therefore printed prescriptions were given to you tonight. You can take them to [facility] tomorrow. Please follow-up with your doctor for further care. Please return if you worsen. Your CT findings are below. Please take all antibiotics until gone. EXAM: [id number] CT/ABPEW ([id number]) PROCEDURE: Abdomen/Pelvis W INDICATIONS: LLQ abd pain, h/o diverticulitis CONTRAST: 100 ML OPTI 320 TECHNIQUE: After the administration of intravenous contrast, a CT scan of the abdomen and pelvis was performed. Images were recorded and evaluated at appropriate window settings. Reformats: coronal and sagittal. For radiation dose reduction, the following was used: automated exposure control, adjustment of mA and/or kV according to patient size. COMPARISON: 04/08/2022. FINDINGS: Image quality: Diagnostic. Lower chest: Unremarkable. Liver: No solid mass. [id number] hepatic steatosis is seen. Gallbladder and biliary tree: Gallbladder is surgically absent. Spleen: No splenomegaly. Pancreas: No pancreatic ductal dilation. Adrenals: No adrenal nodule. Kidneys and ureters: No hydronephrosis. No renal cystic lesion which requires follow up. No solid mass. Stomach, bowel and peritoneum: There is no bowel obstruction. No gastric or small bowel wall thickening. Moderate sigmoid diverticulosis is seen. Minimal pericolonic fat stranding is noted involving proximal sigmoid colon in left lower quadrant with diffuse distal descending colon and sigmoid colon wall thickening, early acute diverticulitis cannot be excluded. There is no perforation. No abscess collection. No free fluid of free air. Appendix is visualized and is normal in size and appearance. Lymph nodes: No central or retroperitoneal adenopathy. Vessels: No infrarenal aortic aneurysm. PELVIS Reproductive organs: Unremarkable. Bladder: No abnormal wall thickening, accounting for underdistention. Pelvic lymph nodes: No pelvic adenopathy by size criteria. Bones: No aggressive osseous abnormality. 5 mm anterolisthesis of L4 on L5 is seen. Other: No significant ventral or inguinal hernia. IMPRESSION: 1. Moderate sigmoid diverticulosis with diffuse distal descending colon and sigmoid colon wall thickening and mild pericolonic fat stranding surrounding proximal sigmoid colon concerning for early mild acute diverticulitis. Normal appendix. No bowel obstruction. No other area of abnormal bowel wall thickening. No free fluid of free air. 2. Hepatic steatosis. No discrete hepatic lesion. 3. 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 Forms: PCP List
--- NOTE | 2023-09-23 20:36 | CT Report ---
PROCEDURE: Abdomen/Pelvis W INDICATIONS: LLQ abd pain, h/o diverticulitis CONTRAST: 100 ML OPTI 320 TECHNIQUE: After the administration of intravenous contrast, a CT scan of the abdomen and pelvis was performed. Images were recorded and evaluated at appropriate window settings. Reformats: coronal and sagittal. F or radiation dose reduction, the following was used: automated exposure control, adjustment of mA and /or kV according to patient size. COMPARISON: 04/08/2022. FINDINGS: Image quality: Diagnostic. Lower chest: Unremarkable. Liver: No solid mass. [id number] hepatic steatosis is seen. Gallbladder and biliary tree: Gallbladder is surgically absent. Spleen: No splenomegaly. Pancreas: No pancreatic ductal dilation. Adrenals: No adrenal nodule. Kidneys and ureters: No hydronephrosis. No renal cystic lesion which requires follow up. No solid mas s. Stomach, bowel and peritoneum: There is no bowel obstruction. No gastric or small bowel wall thickeni ng. Moderate sigmoid diverticulosis is seen. Minimal pericolonic fat stranding is noted involving pro ximal sigmoid colon in left lower quadrant with diffuse distal descending colon and sigmoid colon wal l thickening, early acute diverticulitis cannot be excluded. There is no perforation. No abscess jovita ection. No free fluid of free air. Appendix is visualized and is normal in size and appearance. Lymph nodes: No central or retroperitoneal adenopathy. Vessels: No infrarenal aortic aneurysm. PELVIS Reproductive organs: Unremarkable. Bladder: No abnormal wall thickening, accounting for underdistention. Pelvic lymph nodes: No pelvic adenopathy by size criteria. Bones: No aggressive osseous abnormality. 5 mm anterolisthesis of L4 on L5 is seen. Other: No significant ventral or inguinal hernia. IMPRESSION: 1. Moderate sigmoid diverticulosis with diffuse distal descending colon and sigmoid colon wall thicke ruth and mild pericolonic fat stranding surrounding proximal sigmoid colon concerning for early mild acute diverticulitis. Normal appendix. No bowel obstruction. No other area of abnormal bowel wall thi ckening. No free fluid of free air. 2. Hepatic steatosis. No discrete hepatic lesion. 3. 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 Reviewed by: Abel Mancera MD on 09/23/2023 8:35 PM PST Approved by: Abel Mancera MD on 09/23/2023 8:35 PM PST Station ID: [id number]
[2023-09-23] MEDS: KETOROLAC 30 MG/ML VIAL IVP STA (21:05)
[2023-09-23] MEDS: metroNIDAZOLE 250 MG TABLET PO STA (21:06)
[2023-09-23] MEDS: SULFAMETH/TRIMETH DS 800/160 MG TABLET PO STA (21:06)
[2023-09-23 21:12] VITALS: BP 110/67; O2SAT 95
== END 2023-09-23 21:12 | disposition home or self-care (01) ==
LOC: ED 17:24
DX: K57.32 Diverticulitis of large intestine without perforation or abscess without bleeding (principal); M62.830 Muscle spasm of back; I10 Essential (primary) hypertension; E78.00 Pure hypercholesterolemia, unspecified; E11.42 Type 2 diabetes mellitus with diabetic polyneuropathy; E03.9 Hypothyroidism, unspecified; Z79.899 Other long term (current) drug therapy
CPT/HCPCS: 36415; 74177; 80053; 81003; 83690; 85025; 96374; 99283; 99284; A9270; Q9967; 81001; 87086

== ENCOUNTER 2023-10-10 08:08 | Outpatient (CLI) | payer MEDICARE ==
[2023-10-10 12:05] LABS: BASOPHILS % (AUTO) 0.3 %; EOSINOPHILS # (AUTO) 0.2 10^3/uL (0.0-0.7); EOSINOPHILS % (AUTO) 3.3 %; HCT - HEMATOCRIT 41.7 % (37.0-47.0); HGB - HEMOGLOBIN 13.8 g/dL (12.0-16.0); LYMPHOCYTES # (AUTO) 2.5 10^3/uL (1.5-3.5); LYMPHOCYTES % (AUTO) 37.2 %; MEAN CORPUSCULAR HEMOGLOBIN 31.7 pg (27.0-31.0); MEAN CORPUSCULAR HGB CONC 33.1 g/dL (32.0-36.0); MEAN CORPUSCULAR VOLUME 95.6 fL (81.0-99.0); MEAN PLATELET VOLUME 11.2 fL (7.9-10.8); MONOCYTES # (AUTO) 0.5 10^3/uL (0.0-1.0); MONOCYTES % (AUTO) 7.6 %; NEUTROPHILS # (AUTO) 3.4 10^3/uL (1.5-6.6); NEUTROPHILS % (AUTO) 51.3 %; PLT - PLATELET COUNT 207 10^3/uL (130-450); RED BLOOD COUNT 4.36 10^6/uL (4.20-5.40); RED CELL DISTRIBUTION WIDTH 12.3 % (12.0-15.0); WHITE BLOOD COUNT 6.6 x10^3/uL (4.8-10.8)
[2023-10-10 12:14] LABS: ESTIMATED AVERAGE GLUCOSE 126 mg/dL (70-100)
[2023-10-10 12:25] LABS: ALBUMIN 4.6 g/dL (3.2-5.5); ALKALINE PHOSPHATASE 63 IU/L (42-121); ALT ALANINE AMINOTRANSFERASE 12 IU/L (10-60); AST ASPARTATE AMINOTRANSFERASE 15 IU/L (10-42); BILIRUBIN,TOTAL 0.5 mg/dL (0.2-1.0); BUN - BLOOD UREA NITROGEN 11 mg/dL (6-20); CALCIUM 10.2 mg/dL (8.5-10.3); CARBON DIOXIDE - CO2 25 mmol/L (21-32); CHLORIDE 106 mmol/L (101-111); CHOL/HDL RATIO 3.1 (<4.4); CHOLESTEROL 123 mg/dL; CREATININE 0.7 mg/dL (0.6-1.3); GFR - MDRD 81 (>89); GLUCOSE 129 mg/dL (74-104); HDL CHOLESTEROL 40 mg/dL; LDL CHOLESTEROL,CALCULATED 22 mg/dL; LDL/HDL RATIO 0.6 (<4.4); SODIUM 138 mmol/L (135-145); TOTAL PROTEIN 6.9 g/dL (6.4-8.9); TRIGLYCERIDES 305 mg/dL (48-352); VLDL CHOLESTEROL 61 mg/dL
== END 2023-10-10 08:09 | disposition home or self-care (01) ==
LOC: LAB.N 08:08
PROVIDERS: ATTEND Physician Assistant Medical
DX: E78.5 Hyperlipidemia, unspecified (principal); R73.9 Hyperglycemia, unspecified; K92.1 Melena
CPT/HCPCS: 36415; 80053; 80061; 83036; 83721; 85025

== ENCOUNTER 2023-11-05 14:16 | Emergency (ER) | payer MEDICARE ==
[2023-11-05] MEDS: oxyCODONE 5 MG TABLET PO STA (17:26)
--- NOTE | 2023-11-05 17:36 | XRAY Report ---
PROCEDURE: Hip w/Pelvis 2-3V RT INDICATIONS: R hip/pelvis pain TECHNIQUE: 2 views of the hip were acquired. COMPARISON: None. FINDINGS: Bones: No fractures or dislocations. Moderate bilateral hip joint osteoarthritic changes are seen. N o evidence of avascular necrosis of femoral head. No suspicious bony lesions. Soft tissues: No suspicious soft tissue calcifications or masses. IMPRESSION: No acute bony abnormality. Symmetric appearing moderate bilateral hip joint osteoarthritis. No eviden ce of avascular necrosis. Reviewed by: Abel Mancera MD on 11/05/2023 5:34 PM PDT Approved by: Abel Mancera MD on 11/05/2023 5:34 PM PDT Station ID: [id number]
--- NOTE | 2023-11-05 17:55 | ED Physician Documentation ---
History of Present Illness - Stated complaint Stated Complaint: GLF,HIP PX,KNEE WEAKNESS - Chief complaint Chief Complaint: Ext Problem - History obtained from History obtained from: Patient, Family - History of Present Illness Timing: Other (several months) Pain level max: 5 Pain level now: 5 - Additonal information Additional information: Patient is a 77-year-old female who presents to the emergency department stating that her right hip has been hurting for several months. She states it starts in the right low back radiates to the right thigh. Worse with movement and walking, better with rest. Has not taken anything for pain. No loss of bowel or bladder control. She states that she did fall today but has no acute injuries. No head strike. No loss of consciousness. No IV drug use. No seizure activity. Patient states that she occasionally uses a cane, will use the cane in her right hand. Review of Systems Constitutional: denies: Fever, Chills Respiratory: denies: Cough GI: denies: Vomiting, Diarrhea : denies: Unable to Void, Incontinent Skin: denies: Rash Musculoskeletal: denies: Neck pain, Joint pain Neurologic: denies: Focal weakness, Numbness, Headache, Head injury PD PAST MEDICAL HISTORY - Past Medical History Cardiovascular: Hypertension, High cholesterol Respiratory: None, Other Neuro: Peripheral neuropathy Endocrine/Autoimmune: Type 2 diabetes, HyPOthyroidism GI: GERD, GI bleed, Ulcers, Cholelithiasis : Chronic bladder infection, Kidney stones HEENT: Chronic vision loss, Chronic sinusitis Psych: Depression, Anxiety Musculoskeletal: Osteoarthritis, Chronic back pain, Other Derm: Eczema - Past Surgical History Past Surgical History: Yes General: Cholecystectomy, Colonoscopy, EGD Ortho: Knee replacement /[employer]: section, Other HEENT: Cataracts - Present Medications Home Medications: Ambulatory Orders Medication Instructions Recorded Confirmed Levothyroxine Sodium [Tirosint] 75 mcg PO DAILY 12/19/12 09/23/23 Losartan [Cozaar] 50 mg PO BID 12/19/12 09/23/23 Pantoprazole Sodium 40 mg PO BID 12/19/12 09/23/23 Ascorbic Acid [Vitamin C] 500 mg PO DAILY 08/21/16 09/23/23 Bacillus Coagulans [Probiotic] 1 cap PO DAILY 08/21/16 09/23/23 Cholecalciferol (Vitamin D3) 2,000 unit PO DAILY 08/21/16 09/23/23 [Vitamin D3] Cranberry Fruit Extract [Cranberry] 4 cap PO DAILY 08/21/16 09/23/23 Flaxseed Oil 2 mg PO DAILY 08/21/16 09/23/23 Garlic 1,000 mg PO DAILY 08/21/16 09/23/23 Acetaminophen [Tylenol Arthritis] 1 - 2 each PO BID PRN 06/26/18 09/23/23 Cyclobenzaprine [Flexeril] 10 mg PO TID PRN 06/14/21 09/23/23 Rosuvastatin Calcium [Crestor] 10 mg PO QPM 06/14/21 09/23/23 Buspirone HCl 10 mg PO BID 09/23/23 09/23/23 Citalopram Hydrobromide 40 mg PO DAILY 09/23/23 09/23/23 [Citalopram HBr] Glucosamine/D3/Boswellia Jenny 1 each PO DAILY 09/23/23 09/23/23 [Osteo Bi-Flex Tablet] HYDROcod/ACETAM 5/325 [[place] 5/325] 1 - 2 ea PO Q6H PRN #14 tablet 09/23/23 Loratadine [Allergy Relief] 10 mg PO DAILY 09/23/23 09/23/23 Multivitamin 1 tab PO DAILY 09/23/23 09/23/23 Sulfamethox/Trimeth 800/160 1 each PO BID #20 tablet 09/23/23 [Bactrim Ds 800/160] diphenhydrAMINE [Benadryl] 25 mg PO HS PRN 09/23/23 09/23/23 metroNIDAZOLE [Flagyl] 500 mg PO TID #30 tablet 09/23/23 Meloxicam [Mobic] 7.5 mg PO BID PRN #20 tablet 11/05/23 oxyCODONE [Roxicodone] 5 - 10 mg PO Q6H PRN #14 tablet 11/05/23 MDD 6 - Allergies Allergies/Adverse Reactions: Allergies Allergy/AdvReac Type Severity Reaction Status Date / Time amoxicillin [From Augmentin] Allergy Nausea Verified 11/05/23 14:29 clavulanic acid Allergy Nausea Verified 11/05/23 14:29 [From Augmentin] fluticasone [From Flonase] Allergy Edema Verified 11/05/23 14:29 methylene blue Allergy Edema Verified 11/05/23 14:29 Penicillins Allergy Edema Verified 11/05/23 14:29 - Social History Does the pt smoke?: No Smoking Status: Never smoker Does the pt drink ETOH?: No Does the pt have substance abuse?: No - Immunizations Immunizations are current?: Yes - POLST Patient has POLST: No PD ED PE NORMAL - Vitals Vital signs reviewed: Yes - General General: Alert and oriented X 3, No acute distress - HEENT HEENT: PERRL, Moist mucous membranes - Neck Neck: Supple, no meningeal sign - Cardiac Cardiac: RRR, Strong equal pulses - Respiratory Respiratory: No respiratory distress, Clear bilaterally - Abdomen Abdomen: Soft, Non tender, Non distended - Back Back: No spinal TTP (No midline tenderness to palpation or percussion. No step- off or deformity.) - Derm Derm: Warm and dry - Extremities Extremities: No deformity, No tenderness to palpate, No edema, No calf tenderness / cord, Other (Tender to palpation over the right SI joint. Reproduces her pain.) - Neuro Neuro: Alert and oriented X 3, No motor deficit, No sensory deficit, Other (Normal bilateral lower extremity patellar and ankle jerk reflexes. Normal great toe extension bilaterally. no saddle anesthesia) - Psych Psych: Normal mood, Normal affect Results - Vitals Vitals: Vital Signs - 24 hr 11/05/23 11/05/23 14:29 18:04 Temperature 36.5 C Heart Rate 85 95 Respiratory 16 20 Rate Blood Pressure 144/84 H 142/78 H O2 Saturation 97 96 Oxygen O2 Source Room air - Rads (name of study) hip xray Relevant Findings:: Final report received, See rad report PD Medical Decision Making - ED course Complexity details: reviewed results, re-evaluated patient, considered differential (No cauda equina, no spinal epidural abscess, no fracture, no aortic dissection or evidence of aneursym rupture), d/w patient ED course: Patient with arthritis in the hip on x-ray. Her symptoms are most consistent with sacroiliitis/sciatica. We will place on pain medication and anti- inflammatories for home. Patient was given a walker to help deload her SI joint. She was counseled to use a cane in the left hand to help prevent excess pressure being placed on the right hip. Would prefer that she uses the walker. No evidence of cauda equina, epidural abscess. No indication for emergent imaging. Patient will follow-up with her PCP for further care. No injuries from her fall today. Patient counseled regarding signs and symptoms for which I believe and urgent re-evaluation would be necessary. Patient with good understanding of and agreement to plan and is comfortable going home at this time This document was made in part using voice recognition software. While efforts are made to proofread this document, sound alike and grammatical errors may occur. Departure - Departure Disposition: 01 Home, Self Care Clinical Impression: Sciatica Qualifiers: Laterality: right Qualified Code(s): M54.31 - Sciatica, right side Condition: Good Instructions: ED Sciatica Follow-Up: Megha Cm PA-C [Primary Care Provider] - Within 1 week Prescriptions: Meloxicam [Mobic] 7.5 mg PO BID PRN #20 tablet PRN Reason: Pain oxyCODONE [Roxicodone] 5 - 10 mg PO Q6H PRN #14 tablet MDD 6 PRN Reason: pain Comments: Your prescriptions were sent to [facility] in [place]. You appear to have sciatica causing the pain in your back and your leg. Please follow-up with your doctor for further care. Please return if you worsen. Please use the walker to help you ambulate, this will help take pressure off of your back and your hip. I am prescribing a short course of narcotic pain medication for you. These are potentially dangerous and addictive medications that should be used carefully. These medications may constipate you. Take an [id number] stool softener (docusate) twice daily with plenty of water while taking these medications. If you go 24 hours without a bowel movement, take [id number] miralax, per package instructions. Do not drink or drive while taking these medications. If you received narcotic or sedating medications while in the emergency department, do not drive for 24 hours. Store this medication in a safe, secure place and out of reach of children. It is a violation of federal law to give or sell this medication to another person or to use in a manner other than prescribed. The ED will not refill narcotic prescriptions, including prescriptions lost or stolen. To dispose of unwanted medications: 1. [facility] at [address] in [place] has a medication drop box. They accept prescription medications (in pill form) Sunday through Sunday 9:00 a.m. to 5:00 p.m. 2. [facility] [employer] accepts prescription medications (in pill form only) for disposal year round. Call for more information. 3. Contact the [facility] for the next [facility] sponsored prescription drug collection event. , [phone], or [phone]; Forms: PCP List Discharge Date/Time: 11/05/23 18:07
[2023-11-05 18:09] VITALS: BP 142/78; O2SAT 96
== END 2023-11-05 18:07 | disposition home or self-care (01) ==
LOC: ED 14:16
DX: M54.31 Sciatica, right side (principal); I10 Essential (primary) hypertension; E78.00 Pure hypercholesterolemia, unspecified; E11.42 Type 2 diabetes mellitus with diabetic polyneuropathy; E03.9 Hypothyroidism, unspecified; Z87.19 Personal history of other diseases of the digestive system; Z87.442 Personal history of urinary calculi; Z79.899 Other long term (current) drug therapy
CPT/HCPCS: 73502; 99283; A9270

== ENCOUNTER 2024-04-01 08:30 | Outpatient (CLI) | payer MEDICARE | END 2024-04-01 08:45 | disposition home or self-care (01) | LOC: LAB.N 08:30 | PROVIDERS: ATTEND Physician Assistant Medical | DX: R30.0 Dysuria (principal) | CPT/HCPCS: 87086 ==

== ENCOUNTER 2024-04-06 16:50 | Outpatient (CLI) | payer MEDICARE | END 2024-04-06 23:59 | disposition short-term general hospital (02) | LOC: EMS 16:50 | DX: G89.18 Other acute postprocedural pain (principal); Z96.641 Presence of right artificial hip joint | CPT/HCPCS: A0425; A0427; A0888 ==